=== PATIENT | female | born 1985 | race Caucasian/White ===

== ENCOUNTER 2023-02-10 15:56 | Emergency (ER) | payer MEDICAID, SELFPAY ==
[2023-02-10 16:05] VITALS: BP 188/77; PULSE 114; RESP 22; TEMP 36; O2SAT 97; BMI 55.4
--- NOTE | 2023-02-10 16:40 | ED.CHESTPAIN ---
HPI - Chest Pain General Chief Complaint: Chest Pain Stated Complaint: Chest Pain Time Seen by Provider: 02/10/23 16:12 History of Present Illness HPI narrative: This 37-year-old female comes in reporting brief episodes of chest discomfort in the upper left sternal area. She states that these symptoms last for a minute or so and are not related to exertion. She does not report any nausea, vomiting, lightheadedness, shortness of breath, or diaphoresis. She does not have any exercise intolerance. She has had some symptoms like this in the past and has had her blood checked and was scheduled to have a stress test. She states that she missed the appointment but has a follow-up appointment with her primary doctor where that test can be done again. She is not describing any symptoms at this time. Her chest discomfort is not reproducible with palpating in this area or with taking a deep breath. She does not have any cardiac risk factors except she reports that she is prediabetic. She does report that she has gained about 100 lb in the last year because of depression and in activity and eating too much. She is motivated to work on this and is able to connect with her regular doctor in this regard. Related Data Home Medications Medication Instructions Recorded Confirmed albuterol sulfate 90 mcg/actuation 2 puff inhalation Q4H PRN wheezing 02/10/23 02/10/23 aerosol inhaler (Ventolin HFA) bupropion HCl 300 mg 24 hr tablet, 300 mg PO DAILY 02/10/23 02/10/23 extended release cariprazine 1.5 mg capsule 1.5 mg PO DAILY 02/10/23 (Vraylar) cariprazine 3 mg capsule (Vraylar) 4 mg PO DAILY 02/10/23 02/10/23 econazole 1 % topical cream applic topical DAILY 02/10/23 glycopyrrolate 1 mg tablet mg PO 02/10/23 lisinopril 10 mg tablet 10 mg PO DAILY 02/10/23 02/10/23 oxybutynin chloride 5 mg tablet 5 mg PO 3XD 02/10/23 02/10/23 Allergies Allergy/AdvReac Type Severity Reaction Status Date / Time diphenhydramine Allergy Mild Anxiety Verified 02/10/23 16:17 Review of Systems Status of ROS Reports: 10 or more systems reviewed and unremarkable except as noted in History and below Narrative Constitutional: No fevers, no weight gain or loss. Eyes: No discharge. No vision changes. HENT: No congestion, no sore throat, no ear pain. Cardiovascular: No palpitations. Respiratory: No shortness of breath, no wheezes, no cough. Gastrointestinal: No abdominal pain, no vomiting, no diarrhea. Genitourinary: No dysuria, no hematuria. Musculoskeletal: Normal range of motion. Skin: No rashes, no pruritis. Neurological: No dizziness, weakness, sensory change, speech change. Endo/Heme/Allergies: No bruising or bleeding. No polydipsia. Pysch: no suicidality, no anxiety, no insomnia. All other systems reviewed and are negative. PFSH [facility] Social History Smoking Status: Heavy tobacco smoker What tobacco products do you use: cigarettes Smoking packs per day: 1 Smoking cigarettes per day: 20.0 Years smoked: 10 Smoking pack-years: 10.00 Do you use any of these nicotine containing products: None Second hand tobacco smoke exposure: No How often do you have a drink containing alcohol: 2-3 times a week How many standard drinks containing alcohol do you have on a typical day: 1 or 2 AUDIT-C Alcohol total score: 3 Non-prescribed substance use: denies use Exam Narrative Exam Narrative: Constitutional: Well-developed, well-nourished, no acute distress. HEENT: Normocephalic, atraumatic. Neck: Normal range of motion. Nontender. Supple. Heart: Regular. No murmurs. Mild tachycardia a just over 100 beats per minute. Intact distal pulses. Lungs: Clear to auscultation. No chest discomfort. No wheezes, rhonchi, or rales. Abdomen: Normal bowel sounds. Nontender. No rebound tenderness. Genitalia: Deferred. Back: No midline tenderness. Normal range of motion. Extremities: Normal range of motion. No injury. Skin: Intact. No rash. Warm. No erythema or pallor. Neurologic: No altered sensation. No weakness. Alert and oriented. Psychiatric: No suicidality. No anxiety or depression. No insomnia. Nursing notes and vitals signs are reviewed. Const Vital Signs, click to edit/add: Vital Signs - 24 hr 02/10/23 16:05 Temperature 96.8 F L Pulse Rate [Pulse Oximeter] 114 H Respiratory Rate 22 Blood Pressure [Right Upper Arm] 188/77 H Pulse Oximetry 97 Oxygen Delivery Method Room Air Course Vital Signs Vital signs: Initial Vital Signs Temperature 96.8 F L 02/10/23 16:05 Temperature Source Temporal Artery Scan 02/10/23 16:05 Pulse Rate 114 H 02/10/23 16:05 Respiratory Rate 22 02/10/23 16:05 Blood Pressure 188/77 H 02/10/23 16:05 Blood Pressure Mean 114 02/10/23 16:05 Blood Pressure Position Supine 02/10/23 16:05 Pulse Oximetry 97 02/10/23 16:05 Oxygen Delivery Method Room Air 02/10/23 16:05 Vital Signs Temperature 96.8 F L 02/10/23 16:05 Pulse Rate 114 H 02/10/23 16:05 Respiratory Rate 22 02/10/23 16:05 Blood Pressure 188/77 H 02/10/23 16:05 Pulse Oximetry 97 02/10/23 16:05 Oxygen Delivery Method Room Air 02/10/23 16:05 Temperature 96.8 F L 02/10/23 16:05 Pulse Rate 114 H 02/10/23 16:05 Respiratory Rate 22 02/10/23 16:05 Blood Pressure 188/77 H 02/10/23 16:05 Pulse Oximetry 97 02/10/23 16:05 Oxygen Delivery Method Room Air 02/10/23 16:05 MDM - Chest Pain MDM Narrative Medical decision making narrative: This patient comes in reporting some brief episodes of chest discomfort as described above. Currently she is not having any symptoms. She has had a cardiac workup in the past with EKG and labs and was scheduled to have a stress test. She missed this appointment and states that she will connect with her primary physician to reschedule. I did discuss lab and imaging options today which the patient declined in a process of shared decision making. She does not have any cardiac risk factors except for being overweight. She does not have any exertional symptoms. Her EKG today shows no sign of strain or injury pattern. At the time of discharge the patient appears safe for outpatient management. The treatment plan is reviewed along with written and verbal return precautions. Reasons to return and the importance of close followup were also reviewed. ECG Data Attestation: I personally reviewed and interpreted this ECG as follows: Interpretation: Sinus tachycardia, rate 109 beats per minute. There are no ST or T-wave abnormalities. Discharge Plan Discharge Clinical Impression: Atypical chest pain Patient Disposition: Home, Self-Care Condition: Improved Additional Instructions: Continue current plans. Follow up with primary physician as scheduled. Return if worsening symptoms happen. Prescriptions: No Action glycopyrrolate 1 mg tablet PO lisinopril 10 mg tablet 10 mg PO DAILY oxybutynin chloride 5 mg tablet 5 mg PO 3XD bupropion HCl 300 mg tablet extended release 24 hr 300 mg PO DAILY Vraylar 1.5 mg capsule 1.5 mg PO DAILY Vraylar 3 mg capsule 4 mg PO DAILY econazole 1 % cream topical DAILY albuterol sulfate [Ventolin HFA] 90 mcg/actuation HFA aerosol inhaler 2 puff INHALATION Q4H PRN (Reason: wheezing) Follow Up/Referrals: Stacy Telles MD [Primary Care Provider] - Stand Alone Forms: [employer] Info Instructions
== END 2023-02-10 16:53 | disposition home or self-care (01) ==
LOC: ED 16:47
PROVIDERS: Emergency Provider Emergency Medicine Emergency Medical Services; PCP Family Medicine
DX: R07.9 Chest pain, unspecified (principal)
CPT/HCPCS: 93005; 99284

== ENCOUNTER 2023-07-18 01:14 | Emergency (ER) | payer MEDICAID, SELFPAY ==
[2023-07-18 01:32] VITALS: BP 166/96; PULSE 92; RESP 16; TEMP 37.1; O2SAT 94; BMI 53.2
--- NOTE | 2023-07-18 01:54 | ED.DENTAL ---
HPI - Dental/Oral General Date Seen: 07/18/23 Chief complaint: Dental/Oral/Mouth Injury/Pain Stated complaint: toothache top right. Time Seen by Provider: 07/18/23 01:39 Source: patient Mode of arrival: ambulatory Limitations: no limitations History of Present Illness HPI Narrative: Patient is a 38-year-old female who has been dealing dental decay requiring extractions for over a year. She has been afraid have the teeth pulled and is somewhat embarrassed by that. She has an appointment next week to have two extractions done on her upper right molars. She has been taking Tylenol and ibuprofen for the better part of a year but tonight the pain was so severe that she could not sleep. She comes to emergency department at about 1:30 a.m.. I did search the [employer] system in she has had no narcotics prescribed her in the past year. She denies fevers or chills. There is a bad taste coming from one of the teeth. Related Data Home Medications Medication Instructions Recorded Confirmed albuterol sulfate 90 mcg/actuation 2 puff inhalation Q4H PRN wheezing 02/10/23 07/18/23 aerosol inhaler (Ventolin HFA) cariprazine 1.5 mg capsule 1.5 mg PO DAILY 02/10/23 (Vraylar) cariprazine 3 mg capsule (Vraylar) 4 mg PO DAILY 02/10/23 02/10/23 econazole 1 % topical cream applic topical DAILY 02/10/23 glycopyrrolate 1 mg tablet mg PO 02/10/23 lisinopril 10 mg tablet 10 mg PO DAILY 02/10/23 07/18/23 oxybutynin chloride 5 mg tablet 5 mg PO 3XD 02/10/23 02/10/23 lamotrigine 150 mg tablet 150 mg PO DAILY 07/18/23 07/18/23 metformin 500 mg tablet,extended 500 mg PO DAILY 07/18/23 07/18/23 release 24 hr propranolol 60 mg capsule,24 60 mg PO DAILY 07/18/23 07/18/23 hr,extended release Previous Rx's Medication Instructions Recorded oxycodone 5 mg tablet 5 mg PO Q6H PRN pain #20 tabs 07/18/23 penicillin V potassium 500 mg 500 mg PO TID #21 tabs 07/18/23 tablet Allergies Allergy/AdvReac Type Severity Reaction Status Date / Time diphenhydramine Allergy Mild Anxiety Verified 07/18/23 01:32 Review of Systems Narrative: Review of systems is outlined above otherwise noted to be negative. Her mental health is stable. No recent changes in any of her medications. [facility] Social History Smoking Status: Heavy tobacco smoker What tobacco products do you use: cigarettes Smoking packs per day: 1 Smoking cigarettes per day: 20.0 Years smoked: 10 Smoking pack-years: 10.00 Do you use any of these nicotine containing products: None Second hand tobacco smoke exposure: No How often do you have a drink containing alcohol: 2-3 times a week How many standard drinks containing alcohol do you have on a typical day: 1 or 2 AUDIT-C Alcohol total score: 3 Non-prescribed substance use: denies use Exam Narrative: Exam Narrative: Vitals noted. Blood pressure is elevated. On exam she has dental decay of several of her upper teeth. She is missing several teeth on the left side. There is tenderness to percussion. No purulent drainage or obvious abscess is noted. No significant regional adenopathy. Posterior pharynx is clear. She is able to open and close her mouth without difficulty. Lungs are clear. Heart is regular rate rhythm without murmur. Const: Vital Signs, click to edit/add: Vital Signs - 24 hr 07/18/23 01:32 Temperature 98.8 F Pulse Rate [Pulse Oximeter] 92 Respiratory Rate 16 Blood Pressure [Ri ght Upper Arm] 166/96 H Pulse Oximetry 94 Oxygen Delivery Me thod Room Air Course Course Hospital Course: Patient seen and examined. She has obvious dental decay and dental pain. No recent narcotic prescriptions have been filled. I sent some oxycodone 5 mg tablets to [facility] in a prescription to her pharmacy. Will also start antibiotic until she can have her extractions. Vital Signs Vital signs: Initial Vital Signs Temperature 98.8 F 07/18/23 01:32 Temperature Source Temporal Artery Scan 07/18/23 01:32 Pulse Rate 92 07/18/23 01:32 Respiratory Rate 16 07/18/23 01:32 Blood Pressure 166/96 H 07/18/23 01:32 Blood Pressure Mean 119 H 07/18/23 01:32 Pulse Oximetry 94 07/18/23 01:32 Oxygen Delivery Method Room Air 07/18/23 01:32 Vital Signs Temperature 98.8 F 07/18/23 01:32 Pulse Rate 92 07/18/23 01:32 Respiratory Rate 16 07/18/23 01:32 Blood Pressure 166/96 H 07/18/23 01:32 Pulse Oximetry 94 07/18/23 01:32 Oxygen Delivery Method Room Air 07/18/23 01:32 Temperature 98.8 F 07/18/23 01:32 Pulse Rate 92 07/18/23 01:32 Respiratory Rate 16 07/18/23 01:32 Blood Pressure 166/96 H 07/18/23 01:32 Pulse Oximetry 94 07/18/23 01:32 Oxygen Delivery Method Room Air 07/18/23 01:32 Discharge Plan Discharge Clinical Impression: Dental caries, Toothache Patient Disposition: Home, Self-Care Condition: Improved Additional Instructions: Ibuprofen 800 mg 3 times daily. Tylenol 1000 mg 3 times daily. Oxycodone 5 mg every 6 hours as needed for refractory pain. Keep your follow-up appointment with the dentist next week for your extractions. Prescriptions: New oxycodone 5 mg tablet 5 mg PO Q6H PRN (Reason: pain) Qty: 20 0RF penicillin V potassium 500 mg tablet 500 mg PO TID Qty: 21 0RF No Action glycopyrrolate 1 mg tablet PO lisinopril 10 mg tablet 10 mg PO DAILY oxybutynin chloride 5 mg tablet 5 mg PO 3XD Vraylar 1.5 mg capsule 1.5 mg PO DAILY Vraylar 3 mg capsule 4 mg PO DAILY econazole 1 % cream topical DAILY albuterol sulfate [Ventolin HFA] 90 mcg/actuation HFA aerosol inhaler 2 puff INHALATION Q4H PRN (Reason: wheezing) lamotrigine 150 mg tablet 150 mg PO DAILY propranolol 60 mg capsule,extended release 24 hr 60 mg PO DAILY metformin 500 mg tablet extended release 24 hr 500 mg PO DAILY Follow Up/Referrals: Stacy Telles MD [Primary Care Provider] - Stand Alone Forms: [facility] Info Instructions
== END 2023-07-18 02:02 | disposition home or self-care (01) ==
LOC: ED 01:56
PROVIDERS: Emergency Provider Family Medicine; PCP Family Medicine
DX: K02.9 Dental caries, unspecified (principal)
CPT/HCPCS: 99281; 99283

== ENCOUNTER 2023-12-29 04:49 | Outpatient (CLI) | payer MEDICAID, SELFPAY | END 2023-12-29 04:50 | disposition home or self-care (01) | LOC: AMB 12-30 18:32 | PROVIDERS: PCP Family Medicine; Visit Provider Family Medicine | DX: J04.0 Acute laryngitis (principal); T50.905A Adverse effect of unspecified drugs, medicaments and biological substances, initial encounter | CPT/HCPCS: A0425; A0429 ==

== ENCOUNTER 2023-12-29 05:08 | Emergency (ER) | payer MEDICAID, SELFPAY ==
[2023-12-29 05:11] VITALS: BP 169/101; PULSE 104; RESP 16; TEMP 36.1; O2SAT 95; BMI 50.2
--- NOTE | 2023-12-29 05:16 | ED.NURSE ---
pt noticed symptoms Friday afternoon. Pt had been taking the medication on and off for several years. Pt noticed the pill was different than past pills.
[2023-12-29] MEDS: HYDROCORTISONE 1 % CREAM 1 APPLIC TOPICAL (05:59)
--- NOTE | 2023-12-29 06:04 | ED.GENADULT ---
HPI - General Adult General Chief complaint: Allergic Reaction Stated complaint: possible allergic reaction Time Seen by Provider: 12/29/23 05:21 Source: patient and EMS Mode of arrival: EMS History of Present Illness HPI narrative: 38-year-old female with longstanding history mental illness and multiple emergency department visits presents for concerned that she may have Ham-Danilo syndrome from her lamotrigine. She ago wheeled her rash and found that this was a potential side effect. Rashes been present for the past 5 days and she has not made an attempt to be seen by her primary care provider or in Urgent Care. She called the ambulance in the middle of the night for this. It is located on the dorsum of both hands only. No difficulty swallowing, no shortness of breath. No peeling of the palms or soles, oral mucosa not involved. No sore throat. Rash is not anywhere else on the body. When asked specifically if she has been spending more time outside as I do tend to see this pattern of rash often with weather induced exposure. She admits that she has done this and does not consistently wear gloves. She then rattles on a list of ongoing things that she is seen providers for. She reports that she actually has an appointment with her chiropractor and 9:00 a.m. this morning. She states she has a medication follow-up with her psychiatry medication provider later this week. She has had ongoing issues with insomnia that she has addressed with this provider. It sounds as though she has had labs within the last few months. When asked for clarification about chest pain or any other alarming symptoms, she denies those and is quite reassured by my assessment of her rash. She has not tried applying any topical treatments to the rash to help with her symptoms, denies any other new topical exposures. Past medical history really significant for mental health issues. I reviewed the last couple of ED notes and that does seem consistent for her. She even admits to perseveration on health and rash issues in the past which shows good insight on her part. Denies any recent changes to her medications. ROS is difficult to pin down for acute changes versus chronic. Multiple attempts at redirection were not particularly helpful. Related Data Home Medications Medication Instructions Recorded Confirmed albuterol sulfate 90 mcg/actuation 2 puff inhalation Q4H PRN wheezing 02/10/23 07/18/23 aerosol inhaler (Ventolin HFA) cariprazine 1.5 mg capsule 1.5 mg PO DAILY 02/10/23 (Vraylar) cariprazine 3 mg capsule (Vraylar) 4 mg PO DAILY 02/10/23 02/10/23 econazole 1 % topical cream applic topical DAILY 02/10/23 glycopyrrolate 1 mg tablet mg PO 02/10/23 lisinopril 10 mg tablet 10 mg PO DAILY 02/10/23 07/18/23 oxybutynin chloride 5 mg tablet 5 mg PO 3XD 02/10/23 02/10/23 lamotrigine 150 mg tablet 150 mg PO DAILY 07/18/23 07/18/23 metformin 500 mg tablet,extended 500 mg PO DAILY 07/18/23 07/18/23 release 24 hr propranolol 60 mg capsule,24 60 mg PO DAILY 07/18/23 07/18/23 hr,extended release Previous Rx's Medication Instructions Recorded oxycodone 5 mg tablet 5 mg PO Q6H PRN pain #20 tabs 07/18/23 penicillin V potassium 500 mg 500 mg PO TID #21 tabs 07/18/23 tablet Allergies Allergy/AdvReac Type Severity Reaction Status Date / Time diphenhydramine Allergy Mild Anxiety Verified 07/18/23 01:32 PFSH PFS Social History Smoking Status: Heavy tobacco smoker What tobacco products do you use: cigarettes Smoking packs per day: 1 Smoking cigarettes per day: 20.0 Years smoked: 10 Smoking pack-years: 10.00 Do you use any of these nicotine containing products: None Second hand tobacco smoke exposure: No How often do you have a drink containing alcohol: 2-3 times a week How many standard drinks containing alcohol do you have on a typical day: 1 or 2 AUDIT-C Alcohol total score: 3 Non-prescribed substance use: denies use Exam Const: Vital Signs, click to edit/add: Vital Signs - 24 hr 12/29/23 05:11 Temperature 97.0 F L Pulse Rate [Left P ulse Oximeter] 104 H Respiratory Rate 16 Blood Pressure [Ri ght Upper Arm] 169/101 H Pulse Oximetry 95 Oxygen Delivery Me thod Room Air Documenting provider has reviewed patient's vital signs: yes General appearance: well kempt Other: Anxious but redirectable. Insight fair at best. Does appear well groomed, well nourished, well hydrated. HENMT: Common normals: normocephalic and oropharynx normal Head and scalp: normocephalic Mouth: oral and palatal mucosa normal Throat: posterior oropharynx normal Eye: Common normals: conjunctivae normal General eye: normal appearance of both eyes Conjunctiva: conjunctiva(e) normal Neck & C-Spine: Common normals: full ROM and no lymphadenopathy Resp: Common normals: normal respiratory effort, no use of accessory muscles and clear to auscultation bilaterally Effort & inspection: able to speak in complete sentences Auscultation: clear to auscultation bilaterally Cardio: Common normals: regular rate, regular rhythm, S1 normal heart sound, S2 normal heart sound and no murmurs Rate: regular rate Rhythm: regular rhythm Heart sounds: S1 normal and S2 normal Extremity: Common normals: normal capillary refill and no pedal edema Psych: Appearance: well kempt Attitude: guarded Activity/motor behavior: appropriate eye contact Mood and affect: anxious Insight: fair Judgement: limited Skin: Narrative: Very mild superficial dermatitis to the dorsum of the distal hand and phalanx on the dorsum of the hand, sparing the interphalangeal joints. No skin breakdown or signs of excoriation. Palms are not affected. Finger tips are not affected. No other affected areas of the neck, face, upper arm, thighs or calves. Course Course ED Course: Eczema, likely cold induced based on pattern that would not be covered by her coat with curled finger tips. Counseled patient that this is quite common this time of year and I am happy that she is getting outside. Recommended a short course of topical steroid cream and covering Vaseline, written instructions provided. I do doubt her ability to navigate this by herself, therefore we have dispensed the medications here from the ED. counseled patient on signs and symptoms of Pato Danilo syndrome. I am confident that this is not what she is experiencing right now. Please continue her medications as prescribed and keep her pending appointments for further follow-up this week. She verbalizes understanding and agreement and seemed to do well with the reassurance. Vital Signs Vital signs: Initial Vital Signs Temperature 97.0 F L 12/29/23 05:11 Temperature Source Temporal Artery Scan 12/29/23 05:11 Pulse Rate 104 H 12/29/23 05:11 Pulse Rhythm Regular 12/29/23 05:11 Respiratory Rate 16 12/29/23 05:11 Blood Pressure 169/101 H 12/29/23 05:11 Blood Pressure Mean 123 H 12/29/23 05:11 Blood Pressure Position Sitting 12/29/23 05:11 Pulse Oximetry 95 12/29/23 05:11 Oxygen Delivery Method Room Air 12/29/23 05:11 Vital Signs Temperature 97.0 F L 12/29/23 05:11 Pulse Rate 104 H 12/29/23 05:11 Respiratory Rate 16 12/29/23 05:11 Blood Pressure 169/101 H 12/29/23 05:11 Pulse Oximetry 95 12/29/23 05:11 Oxygen Delivery Method Room Air 12/29/23 05:11 Temperature 97.0 F L 12/29/23 05:11 Pulse Rate 104 H 12/29/23 05:11 Respiratory Rate 16 12/29/23 05:11 Blood Pressure 169/101 H 12/29/23 05:11 Pulse Oximetry 95 12/29/23 05:11 Oxygen Delivery Method Room Air 12/29/23 05:11 Medications Administered Medications: Discontinued Medications Generic Name Dose Route Start Last Admin Trade Name Freq PRN Reason Stop Dose Admin Hydrocortisone/Aloe 1 applic 12/29/23 05:31 12/29/23 05:59 Hydrocortisone 1 % Cream TOPICAL 12/29/23 05:32 1 applic BID ONE Administration Discharge Plan Discharge Clinical Impression: Contact dermatitis and eczema Patient Disposition: Home, Self-Care Condition: Stable Instructions: Contact Dermatitis (DC) Additional Instructions: As we discussed, the very mild skin reaction on your hands is not related to Pato Danilo syndrome. I am quite familiar with that condition. Most likely, the reaction is due to cold temperatures and being outside. The dry winter air does tend to worsen this in many people. The good news is that this is not dangerous. This is not related to your medication. We have given you a small starter supply of hydrocortisone cream. You will apply a pea-sized amount to the affected areas of the top of each hand twice daily for the next 5 days. You will let the cream set for a few minutes and then apply a thin coating of Vaseline. We have given you a very small tube to get you started but you will need to purchase some more. I like plain Vaseline or petroleum jelly for this. The generic tub is perfect. You may also use the tub of Vaseline on your lips for dryness. I do think some of your mouth dryness is related to benign side effects from your medications but is also not dangerous. If you get a similar appearing rash on other parts of the body, you may apply the Vaseline there as well. It will take a couple of weeks to clear up. If the rash goes away and then comes back, you may start the process over again. This is very common in the winter and is not to be of significant concern. Please keep your follow-up as planned with her chiropractor today and your primary physician this week. Try to wear gloves when outside as even temperatures of 40? and below can cause this skin irritation. Activity Level: No Restrictions Discharge Diet: Regular Prescriptions: No Action glycopyrrolate 1 mg tablet PO lisinopril 10 mg tablet 10 mg PO DAILY oxybutynin chloride 5 mg tablet 5 mg PO 3XD Vraylar 1.5 mg capsule 1.5 mg PO DAILY Vraylar 3 mg capsule 4 mg PO DAILY econazole 1 % cream topical DAILY albuterol sulfate [Ventolin HFA] 90 mcg/actuation HFA aerosol inhaler 2 puff INHALATION Q4H PRN (Reason: wheezing) lamotrigine 150 mg tablet 150 mg PO DAILY propranolol 60 mg capsule,extended release 24 hr 60 mg PO DAILY metformin 500 mg tablet extended release 24 hr 500 mg PO DAILY oxycodone 5 mg tablet 5 mg PO Q6H PRN (Reason: pain) Qty: 20 0RF penicillin V potassium 500 mg tablet 500 mg PO TID Qty: 21 0RF Follow Up/Referrals: Stacy Telles MD [Primary Care Provider] - Stand Alone Forms: [employer] Info Instructions
== END 2023-12-29 06:00 | disposition home or self-care (01) ==
LOC: ED 05:41
PROVIDERS: Emergency Provider Family Medicine; PCP Family Medicine
DX: L23.89 Allergic contact dermatitis due to other agents (principal)
CPT/HCPCS: 99282; 99283

== ENCOUNTER 2024-04-22 14:00 | Outpatient (RCR) | payer MEDICARE, MEDICAID, SELFPAY | END 2024-08-20 23:59 | disposition home or self-care (01) | PROVIDERS: PCP Family Medicine; Visit Provider Family Medicine | DX: M25.551 Pain in right hip (principal); Z51.89 Encounter for other specified aftercare | CPT/HCPCS: 97110; 97140; 97161 ==

== ENCOUNTER 2024-09-14 04:21 | Outpatient (CLI) | payer MEDICARE, MEDICAID, SELFPAY | END 2024-09-14 04:22 | disposition home or self-care (01) | LOC: AMB 09-27 23:47 | PROVIDERS: PCP Family Medicine; Visit Provider Family Medicine | DX: I49.9 Cardiac arrhythmia, unspecified (principal) | CPT/HCPCS: A0998 ==

== ENCOUNTER 2025-01-10 07:03 | Outpatient (CLI) | payer MEDICARE, OTHER, SELFPAY ==
--- NOTE | 2025-01-10 07:15 | CRLHL7_ITS ---
For Patients: As a result of the Century Cures Act, medical imaging exams and procedure reports are released immediately into your electronic medical record. You may view this report before your referring provider. If you have questions, please contact your health care provider. INDICATION: Elevated liver function tests TECHNIQUE: Color-flow and pulsed Doppler of the portal vein, hepatic veins and hepatic artery. COMPARISON: None FINDINGS: The liver is moderately enlarged and fatty. The portal vein is normal in caliber, and there is hepatopetal flow of normal velocity in the portal vein at 33 cm/sec. The hepatic veins are patent and demonstrate hepatofugal flow and grossly normal waveforms. The hepatic artery is also patent and demonstrates grossly normal waveforms. No gallstone is evident. No gallbladder wall thickening or pericholecystic fluid is evident. No bile duct dilation is noted. The common duct measures up to 6 mm in diameter. The pancreas is grossly negative. The kidneys are unremarkable. The spleen is borderline enlarged, measuring 12 cm in length. No ascites evident. IMPRESSION: 1. Normal liver Doppler study. 2. Liver moderately enlarged and fatty. 3. Borderline splenomegaly. Dictated by Kt Bennett MD @ 01/10/2025 12:30:17 PM (Electronically Signed)
== END 2025-01-10 07:04 | disposition home or self-care (01) ==
LOC: US 07:05
PROVIDERS: PCP Family Medicine; Visit Provider Physician Assistant
DX: R79.89 Other specified abnormal findings of blood chemistry (principal); R16.0 Hepatomegaly, not elsewhere classified
CPT/HCPCS: 76700; 93975

== ENCOUNTER 2025-07-03 20:31 | Emergency (ER) | payer MEDICARE, MEDICAID, SELFPAY ==
[2025-07-03] VITALS (13 sets, daily range): BP systolic 133–193; BP diastolic 75–113; PULSE 100–128; RESP 17–34; TEMP 36.9; O2SAT 90–98; BMI 48.3
--- OUTSIDE RECORDS SUMMARY | 2025-07-03 20:34 | XMS_ITS | Clinical Summary ---
Author Organization [facility] Address [address] [place] [address] Care Team Providers Care Gamewell Operator Name Role Phone Stacy Telles MD Primary Care Provider [phone] Betito Ying MD Unavailable [phone] Yessi Espana RN Unavailable [phone] Allergies Active Allergy Reactions Criticality Noted Date Comments Diphenhydramine Hallucinations Medium 11/08/2021 Unlisted Allergen (Include Detail In Comments) Runny Nose,Other - Describe In Comment Field Low 09/17/2021 Environmental allergies Medications nystatin powder (MYCOSTATIN) powderIndications: Candidal intertrigo Apply 1 Strip topically to affected area(s) three times daily. 60 g 3 04/16/20 23 Active nystatin (MYCOSTATIN) 100,000 unit/gram topical creamIndications:S kin yeast infection Apply topically to affected area(s) two times daily. 30 g 11/18/19 24 Active docusate (COLACE) 100 mg tablet Take 100 mg by mouth once daily. Active DULoxetine (CYMBALTA) 60 mg Delayed-release capsuleIndications :Bipolar 1 disorder (HC) Take 1 Capsule (60 mg) by mouth once daily. 30 Capsule 04/14/20 24 Active OLANzapine (ZYPREXA) 5 mg tabletIndications: Bipolar 1 disorder (HC) Take 1 Tablet (5 mg) by mouth at bedtime. 15 Tablet 04/14/20 24 Active Additional Information Patient taking differently:5 mg OralBEDTIME PRN, Sleep, Reported on 02/09/2025 risperiDONE (RISPERDAL) 2 mg tabletIndications: Bipolar 1 disorder (HC) TAKE 1 TABLET BY MOUTH AT BEDTIME 3 Tablet 05/14/20 Active Additional Information Patient taking differently: 0.75 mgOral BEDTIME, Reported on 06/09/2025 DULoxetine (CYMBALTA) 20 mg Delayed-release capsuleIndications :Bipolar 1 disorder (HC) TAKE 1 CAPSULE (20 MG) BY MOUTH AT BEDTIME. 3 Capsule 05/14/20 Active lamoTRIgine 100 mg tablet Take 150 mg by mouth once daily. 07/20/20 Active diabetic supplies, miscellan.Indicati ons:diabetes mellitus Dispense glucose meter, test strips and lancets covered by patient insurance. Test 1 times per day. 1 Kit 10/06/20 Active lancets 32 gauge miscIndications:di abetes mellitus As directed. Dispense item covered by pt ins. E11.9 NIDDM type II - Test 1 time/day 100 Each 10/06/20 24 Active blood sugar diagnostic (Pharmacist Choice) stripIndications:d iabetes mellitus Dispense item covered by pt ins. E11.9 NIDDM type II - Test 1 time/day 100 Each 10/06/20 Active aspirin (ECOTRIN) 81 mg enteric coated tabletIndications: Type 2 diabetes mellitus without complication, without long-term current use of insulin (HC) Take 1 Tablet (81 mg) by mouth once daily with a meal. 90 Tablet 11/04/20 24 Active Blood-Glucose Meter (Accu-Chek Guide Me Glucose Mtr)Indications:Ty pe 2 diabetes mellitus without complications (HC) DISPENSE GLUCOSE METER, TEST STRIPS AND LANCETS COVERED BY PATIENT INSURANCE. TEST 1 TIMES PER DAY. 1 Each 11/07/20 24 Active metroNIDAZOLE 0.75 % gelIndications:Ros acea Apply topically to affected area(s) two times daily. 45 g 3 11/18/19 25 Active saliva substitute (Biotene Dry Mouth Oral Rinse) mouthwashIndicatio ns:Dry mouth Swish and spit 15 mL by mouth 4 times daily if needed for Dry Mouth. 1000 mL 3 12/16/19 25 Active aluminum chloride (Drysol) 20 % external solutionIndication s:Hyperhidrosis Apply topically to affected area(s) at bedtime. 50 mL 3 12/16/19 25 Active econazole nitrate cream 1 % creamIndications:T inea versicolor APPLY TOPICALLY TO AFFECTED AREA(S) ONCE DAILY. 85 g 1 05/02/20 25 Active tirzepatide (MOUNJARO) 7.5 mg/0.5 mL penIndications:Typ e 2 diabetes mellitus without complication, without long-term current use of insulin (HC) Inject 7.5 mg subcutaneous once weekly. 6 mL 1 06/09/20 25 Active rosuvastatin (CRESTOR) 5 mg tabletIndications: Hyperlipidemia, unspecified hyperlipidemia type Take 1 Tablet (5 mg) by mouth at bedtime. 90 Tablet 1 06/09/20 25 Active metFORMIN (GLUCOPHAGE XR) 500 mg Extended-Release tabletIndications: Type 2 diabetes mellitus without complication, without long-term current use of insulin (HC) Take 4 Tablets (2,000 mg) by mouth once daily with evening meal. Then take 4 tabs (2000 mg) once daily with evening meal thereafter 360 Tablet 1 06/09/20 25 Active lisinopriL (PRINIVIL; ZESTRIL) 10 mg tabletIndications: HTN (hypertension) Take 1 Tablet (10 mg) by mouth once daily. 90 Tablet 1 06/09/20 25 Active propranolol ER (INDERAL LA) 60 mg Cs24 Sustained-Release capsuleIndications :HTN (hypertension) Take 1 Capsule (60 mg) by mouth once daily. 90 Capsule 1 06/09/20 25 Active oxybutynin XL (DITROPAN XL) 5 mg CR tabletIndications: Urge incontinence Take 1 Tablet (5 mg) by mouth once daily. 90 Tablet 3 06/09/20 25 Active loratadine (CLARITIN) 10 mg tabletIndications: Seasonal allergic rhinitis due to pollen Take 1 Tablet (10 mg) by mouth once daily. 90 Tablet 1 06/09/20 25 Active fluticasone propion-salmeteroL (ADVAIR) 115-21 mcg/actuation inhalerIndications :Wheezing,FINN (dyspnea on exertion),Asthma, unspecified asthma severity, unspecified whether complicated, unspecified whether persistent (HC) Inhale 2 Puffs by mouth two times daily. 3 Each 06/09/20 25 Active albuterol HFA (PRO-AIR; VENTOLIN; PROVENTIL) 90 mcg/actuation inhalerIndications :Wheezing Inhale 2 Puffs by mouth every 4 hours if needed for Shortness Of Breath (cough or wheezing). 18 g 3 06/09/20 25 Active albuterol HFA (PRO-AIR; VENTOLIN; PROVENTIL) 90 mcg/actuation inhalerIndications :Wheezing Inhale 2 Puffs by mouth every 4 hours if needed for Shortness Of Breath (cough or wheezing). 18 g 3 09/16/20 24 025 Discontin ued(Reord er (E-cancel not sent)) propranolol ER 60 mg Cs24 Sustained-Release capsuleIndications :HTN (hypertension) Take 1 Capsule (60 mg) by mouth once daily. 90 Capsule 1 02/18/20 25 025 Discontin ued(Reord er (E-cancel not sent)) metFORMIN 500 mg Extended-Release tabletIndications: Type 2 diabetes mellitus without complication, without long-term current use of insulin (HC) Take 4 Tablets (2,000 mg) by mouth once daily with evening meal. Then take 4 tabs (2000 mg) once daily with evening meal thereafter 360 Tablet 02/18/20 25 025 Discontin ued(Reord er (E-cancel not sent)) lisinopriL 10 mg tabletIndications: HTN (hypertension) Take 1 Tablet (10 mg) by mouth once daily. 90 Tablet 1 02/18/20 25 025 Discontin ued(Reord er (E-cancel not sent)) rosuvastatin 5 mg tabletIndications: Hyperlipidemia, unspecified hyperlipidemia type Take 1 Tablet (5 mg) by mouth at bedtime. 90 Tablet 1 02/18/20 25 025 Discontin ued(Reord er (E-cancel not sent)) loratadine 10 mg tabletIndications: Seasonal allergic rhinitis due to pollen TAKE 1 TABLET BY MOUTH EVERY DAY 90 Tablet 03/22/20 25 025 Discontin ued(Reord er (E-cancel not sent)) tirzepatide 5 mg/0.5 mL penIndications:Typ e 2 diabetes mellitus without complication, without long-term current use of insulin (HC) Inject 5 mg subcutaneous once weekly. 6 mL 05/13/20 25 025 Discontin ued(*Medi cation adjustmen t) fluticasone propion-salmeteroL (ADVAIR) 115-21 mcg/actuation inhalerIndications :Wheezing,FINN (dyspnea on exertion),Asthma, unspecified asthma severity, unspecified whether complicated, unspecified whether persistent (HC) TAKE 2 PUFFS BY MOUTH TWICE A DAY 1 Each 05/31/20 25 025 Discontin ued(Reord er (E-cancel not sent)) Active Problems Problem Noted Date Diagnosed Date Obstructive lung disease (generalized) 5 Pap smear for cervical cancer screening 09/24/20 Overview (09/24/2024): 08/2024 NIL/HPV negative. Plan: Pap/HPV due 08/2029. 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 Elijah Mcgowan MD / psychiatry Hidradenitis 12/05/2015 IUD migration 10/27/2013 Tobacco use disorder 05/23/2009 HTN (hypertension) Intermittent asthma Elevated LFTs Bipolar 1 disorder COVID-19 virus infection Resolved Problems Problem Noted Date Diagnosed Date Resolved Date Mental health disorder 01/12/201610/30 Overview (01/12/2016): Under the care of Elijah Mcgowan MD for mental health care. [facility] Previous Medication Trials: Seroquel (Side Effects), Ativan (Side Effects), Lamictal, [place], Zyprexa (Side Effects), Geodon, Lunesta (Stopped Using - Not Effective), Vistaril, Trazodone, Klonopin, Abilify Past Psychiatric Hospitalizations: 08/2008: [facility] [place] (Diagnosed with Bipolar) 06/2009: [place] 01/2011: [facility] (SI/SIB) 07/2011: [facility] (Manic) 2010: [facility], [place] History of Suicide Attempts: Deferred Brief Summary: Therapist: Tracey Dupont Previously saw Rodney Landis MD and Honorio Mosley, RADIOLOGIST - Transitioned to Dr. Mcgowan in 06/2011 Bipolar disorder, most recent episode manic 05/17/2013 09/25/2018 Bipolar I disorder, most rec ent episode (or current) manic, severe, without mention of psychotic behavior 09/25/2011 05/17/2013 Encounters for other specifi ed administrative purpose(V68.89) 08/29/2009 08/29/2009 Unspecified episodic mood disorder 10/14/2008 05/17/2013 Bipolar I disorder, most rec ent episode (or current) unspecified 08/25/2008 05/17/2013 Encounters Date Type Department Care Team Description 06/09/2025 11:15 AM CDT Office Visit [address] [address] Stacy Telles MD Diabetes 06/09/2025 Travel 05/29/2025 Refill [facility] [address] [place] [address] Stacy Telles MD Refill Request (Fluticasone Propion-salmeterol) 05/22/2025 Refill [facility] [address] [place] [address] Stacy Telles MD Refill Request (Mounjaro) 05/12/2025 Refill [facility] [address] [place] [address] Stacy Telles MD Refill Request (tirzepatide 5 mg/0.5 mL pen) 04/29/2025 Refill [facility] [address] [place] [address] Stacy Telles MD Refill Request (Ryder, Econazole Nitrate Cream) 04/07/2025 11:40 AM CDT Telemedicine [facility] [address] [phone] Jess Summers PA Telehealth (Looking for note for gym) 04/07/2025 Travel 04/06/2025 Telephone [facility] [address] [place] [address] Stacy Telles MD Questions ([facility] for [facility] ) from Last 3 Months Immunizations Immunization Administration Dates Next Due COVID-19 vaccine (bitHound-Bio NTech 30mcg/0.3mL) 12YO+ JERALD-SUCROSE MD MARKV 01/30/2022,01/04/2022 DTaP 06/11/1989,,01/08/1985,1983,1984 Hepatitis A (Adult) 06/10/2011,05/11/2010 Hepatitis B (Peds) 02/22/2000,07/17/1998, 998 Human Papilloma Virus Vaccine 06/10/2011, 010 Influenza A (H1N1), Inactiva kassandra (Age >=3 Years) 09/26/2009 Influenza, IIV3 (Age >=3 years) 09/07/2013,08/26 MMR 03/02/1996,12/08/1985 Pneumococcal Conj 20-valent (Prevnar 20) 06/20/2022 Polio Virus, Unspecified 06/11/1989,01/16,1984,1983 Td (Age >=7 Years) 03/02/1996 Tdap 10/15/2013,08/28/2006 Family History Medical History Relation Name Comments Hypertension Father Mahendra Diabetes Maternal Grandmother [place] Hypertension Mother Lupe Heart Disease Paternal Grandfather Diabetes Paternal Grandmother Heart Disease Paternal Grandmother Anesthesia Problem No Family History Blood Disease No Family History Relation Name Status Comments Brother 1 Archie Alive Brother 2 Erwin Alive Father Mahendra Alive Maternal Grandfather Gene Alive Maternal Grandmother [place] Alive Mother Lupe Alive Paternal Grandfather (Age 40) Paternal Grandmother (Age 80) Social History Tobacco Use Types Packs/Day Years Used Date Smoking Tobacco: Every Day Cigarettes 1.5 19.6 Started: 2005; Last attempted to quit: 12/06/2024 Smokeless Tobacco: Never Tobacco Cessation:Ready to Q uit: No; Counseling Given: No Alcohol Use Standard Drinks/Week Comments Yes 0 (1 standard drink = 0.6 oz pur e alcohol) rare once a month PHQ-2 Answer Date Recorded PHQ-2 TOTAL SCORE 2 09/16/2024 Social Connections Answer Date Recorded Do you often feel lonely or isolated from those around you? 0 02/09/2025 Alcohol Use Answer Date Recorded How often do you have a drink containing alcohol ? 2 11/18/2023 How many drinks containing a lcohol do you have on a typical day when you are drinking? 0 11/18/2023 How often do you have five or more drinks on one occasion? 0 11/18/2023 Financial Resource Strain Answer Date R ecorded Difficulty of Paying Living Expenses 3 02/09/2025 Difficulty of Paying Living Expenses Not on file 02/09/2025 Food Insecurity Answer Date Recorded Do you worry your food will run out before you are able to buy more? 1 02/09/2025 Transportation Needs Answer Date Record ed Does lack of transportation keep you from medica l appointments? 1 02/09/2025 Does lack of transportation keep you from work, meetings or getting things that you need? 1 02/09/2025 Housing Stability Answer Date Recorded What is your housing situation today? 1 02/09/2025 Interpersonal Safety Answer Date Record ed Are you being hit, kicked, p ushed or yelled at (see row info)? No 12/31/2023 Interpersonal Safety Abuse 12 - 18 Not on file 12/31/2023 Interpersonal Safety Ambulatory Vulnerability No t on file 12/31/2023 Utilities Answer Date Recorded Do you have trouble paying f or utilities (for example, heat, electricity, water, phone)? 1 02/09/2025 Comments No Sex and Gender Information Value Date Recorded Sex Assigned at Not on file Legal Sex Female 5:17 AM FORGING DIE SINKER Gender Identity Not on file Sexual Orientation Not on file Obstetrics History Para Term AB IAB SAB Ectopic Multiple Livin g Live Births 2 1 1 1 1 1 Date Outcome GA Total Labor Labor/2nd/3rd Weight Sex Type Anes PTL Ashanti A1 A5 Name Clin Term 6 IAB 22w 4d Delivery Location:[facility] Comments Multiple anomalies, therapeu tic D&E for 2nd Last Filed Vital Signs Vital Sign Reading Time Taken Comments Blood Pressure 123/80 06/09/2025 11:28 AM CDT Pulse 84 06/09/2025 11:28 AM CDT Temperature 36.7 C (98 F) 12/31/2023 5:25 PM FORGING DIE SINKER Respiratory Rate 18 12/31/2023 6:08 PM FORGING DIE SINKER Oxygen Saturation 95% 06/09/2025 11: 28 AM CDT Inhaled Oxygen Concentration - - Weight 147.1 kg (324 lb 6.4 oz) 025 11:28 AM CDT Height 175.3 cm (5' 9.02) 01/12/2025 4:00 PM CS T Body Mass Index 47.88 01/12/2025 4:00 PM FORGING DIE SINKER Plan of Treatment Health Maintenance Due Date Last Done Comments Tetanus booster 10/15/2023 10/15/2013, 08/17, 03/02/1996 COVID-19 vaccine series ( season) 2024 01/30/2022, 01/04/2022 Influenza Vaccine (#1) 2025 09/07/2013, 2011 Depression screening for age 12+ 09/17/2025 09/17/2024, 09/16/2024, 04/16/2023, Additional history exists BMI (ht and wt on same day) for age 18+ 01/12/2026 01/12/2025, 12/28/2024, 09/16/2024, Additional history exists Pap test for age 21-65 09/16/2029 , 10/31/2020, 10/31/2020, Additional history exists Hepatitis B series for 19+ Completed 02/21, 07/17/1998, 06/05/1998 HIV for age 15-65 Completed 06/04/2016, , 07/12/2010, Additional history exists Pneumococcal series for age 6-49 Completed 06/20/20 Hepatitis C screening for ag e 18-79 Completed 12/03/2022, 06/04/2016, 12/05/2015, Additional history exists Goals Goal Patient Goal Type Associated Problems Recent Progress Patient-Stated? Author BLOOD PRESSURE - Maintains BP less than 130/80 Blood Pressure Stacy Go MD Procedures Procedure Name Priority Date/Time Associated Diagnosis Comments URINALYSIS MACROSCOPIC - [facility] ONLY POC DIP ([facility]) Routine 06/09/2025 12:02 PM CDT Urge incontinence URINALYSIS MICROSCOPIC Routine 06/09/2025 11:51 AM CDT Urge incontinence URINE CULTURE Routine 06/09/2025 11:51 AM CDT Urge incontinence COMP METABOLIC PANEL Routine 06/09/2025 11:18 AM CDT Type 2 diabetes mellitus without complication, without long-term current use of insulin (HC) HEMOGLOBIN A1C MONITORING (POCT) Routine 06/09/2025 11:17 AM CDT Type 2 diabetes mellitus without complication, without long-term current use of insulin (HC) WINDLACE MACHINE OPERATOR THIN PREP PAP AND HPV DNA - AGE 25 AND OVER ([facility]) Routine 09/16/2024 9:45 AM CDT Screening for cervical cancer LC HCV ANTIBODY RFX TO QUANT PCR Routine 12/03/2022 2:03 PM FORGING DIE SINKER Elevated LFTs ANTI HIV 1/2 Routine 06/04/2016 11:34 AM CDT Less than 8 weeks gestation of (HC) from Last 3 Months or Most Recently Relevant to Health Maintenance Results * POCT Urinalysis Dipstick Only [[id number]] (06/09/2025 12:02 PM CDT) PH 7.0 5.0 - 8.0 [facility] SPECIFIC GRAVITY < OR = 1.005 1.001 - 1.035 [facility] Comment: Specific [employer] values resulted are outside the analytical measurement range of this device. Recommend repeat/additional testing as clinically indicated. GLUCOSE NEGATIVE NEGATIVE [facility] BILIRUBIN NEGATIVE NEGATIVE [facility] KETONES NEGATIVE NEGATIVE [facility] OCCULT BLOOD NEGATIVE NEGATIVE [facility] PROTEIN NEGATIVE NEGATIVE [facility] NITRITE NEGATIVE NEGATIVE [facility] LEUKOCYTE ESTERASE NEGATIVE NEGATIVE [facility] Urine URINE SPECIMEN / Unknown 06/09/2025 12:02 PM CDT 06/09/2025 12:02 PM CDT Stacy Telles MD URINE Final Resul t [facility] [address] [place] [address], [facility] [address] [place] [address] * URINALYSIS MICROSCOPIC [[id number]] - routine (06/09/2025 11:51 AM CDT) RBC 0-2 0-2, None Seen /HPF 06/09/2025 10:59 PM CDT [facility] WBC 0-2 0-2, 3-5, None Seen /HPF 06/09/2025 10:59 PM CDT [facility] BACTERIA Rare None Seen, Rare, Few Bacteria/H PF 06/09/2025 10:59 PM CDT [facility] EPITHELIAL CELLS Few None Seen, Few Epi/HPF 06/09/2025 10:59 PM CDT [facility] HYALINE CASTS 0-2 0-2, 3-5 /LPF 06/09/2025 10:59 PM CDT [facility] Urine URINE SPECIMEN / Unknown Non-Blood / Unknown 06/09/2025 11:51 AM CDT 06/09/2025 12:01 PM CDT Stacy Telles MD URINE Final Resul t Performing Organization Address City/[facility]/ZIP Co de Phone Number [facility] [address] [place] [address], [place] * URINE CULTURE [[id number]] (06/09/2025 11:51 AM CDT) CULTURE <10,000 CFU/mL multiple organisms 06/11/2025 3:11 PM CDT [facility] Urine URINE SPECIMEN / Unknown Non-Blood / Unknown 06/09/2025 11:51 AM CDT 06/09/2025 12:01 PM CDT Stacy Telles MD MICROBIOLOGY Final Resul t Performing Organization Address City/[facility] Co de Phone Number [facility] [address] [place] [address], [place] * (ABNORMAL) COMP METABOLIC PANEL (06/09/2025 11:18 AM CDT) GLUCOSE 96 65 - 99 mg/dL [facility] Comment: Fasting reference interval UREA NITROGEN (BUN) 11 7 - 25 mg/dL [facility] CREATININE 0.72 0.50 - 0.99 mg/dL [facility] EGFR 108 > OR = 60 mL/min/1. 73m2 [facility] BUN/CREATININE RATIO SEE NOTE: 6 - 22 (calc) [facility] Comment: Not Reported: BUN and Creatinine are within reference range. SODIUM 138 135 - 146 mmol/L [facility] POTASSIUM 4.6 3.5 - 5.3 mmol/L [facility] CHLORIDE 104 98 - 110 mmol/L [facility] CARBON DIOXIDE 23 20 - 32 mmol/L [facility] CALCIUM 10.0 8.6 - 10.2 mg/dL [facility] PROTEIN, TOTAL 7.2 6.1 - 8.1 g/dL [facility] ALBUMIN 4.7 3.6 - 5.1 g/dL [facility] GLOBULIN 2.5 1.9 - 3.7 g/dL (calc) [facility] ALBUMIN/GLOBULIN RATIO 1.9 1.0 - 2.5 (calc) [facility] BILIRUBIN, TOTAL 0.4 0.2 - 1.2 mg/dL [facility] ALKALINE PHOSPHATASE 145(H) 31 - 125 U/L [facility] AST 14 10 - 30 U/L [facility] ALT 18 6 - 29 U/L [facility] Blood BLOOD SPECIMEN / Unknown 06/09/2025 11:18 AM CDT 06/09/2025 11:18 AM CDT Stacy Telles MD CHEMISTRY Final Resul t Performing Organization Address City/[facility]/ZIP Co de Phone Number [facility] [address] [place] [address], [place] [phone] [facility] [address] [place] [address] * POCT Hemoglobin A1C Monitoring (06/09/2025 11:17 AM CDT) POC HEMOGLOBIN A1C 5.4 <6.0 % OF TOTAL HGB [facility] Comment: Any point of care results exhibiting inconsistency with the patient's clinical status should be repeated using a different testing method. Blood BLOOD SPECIMEN / Unknown 06/09/2025 11:17 AM CDT 06/09/2025 11:17 AM CDT us Stacy Telles MD CHEMISTRY Final Resul t [facility] [address] [place] [address], [place] [phone] [facility] [address] [place] [address] * WINDLACE MACHINE OPERATOR THIN PREP PAP AND HPV DNA REFLEX HPV 16/18 - AGE 25 AND OVER ([facility]) [[id number]] (09/16/2024 9:45 AM CDT) CLINICAL INFORMATION [facility] Comment:None given LMP [facility] Comment:S/P ABLATION PREV. PAP [facility] Comment:2020 PREV. BX [facility] Comment:NONE SOURCE WINDLACE MACHINE OPERATOR [facility] Comment:Cervix STATEMENT OF ADEQUACY [facility] Comment: Satisfactory for evaluation. Endocervical/transformation zone component present. INTERPRETATION/RESU LT [facility] Comment: Cytology Results: Negative for intraepithelial lesion or malignancy. COMMENT [facility] Comment: This Pap test has been evaluated with computer assisted technology. ACOUSTIC INTELLIGENCE SPECIALIST [facility] Comment: JXL, CT(ASCP) CT Screening Location: [address] [address] THINPREP TIS PAP ALWAYS MESSAGE [facility] Comment: EXPLANATORY NOTE: The Pap is a screening test for cervical cancer. It is not a diagnostic test and is subject to false negative and false positive results. It is most reliable when a satisfactory sample, regularly obtained, is submitted with relevant clinical findings and history, and when the Pap result is evaluated along with historic and current clinical information. HPV HIGH RISK Not Detected NOT DETECTED [facility] Comment: Not Detected High Risk HPV types (16,18,31,33,35,39,45,51,52, 56,58,59,66,68) were not detected. Other HPV types which cause anogenital lesions may be present. The significance of the other types of HPV in malignant processes has not been established. Methodology: Real Time PCR Other (Cervical) 09/16/2024 9:45 AM CDT 09/17/2024 5:53 AM CDT us Stacy Telles MD PATHOLOGY/CYTOLOGY Final Re sult [facility] [address] [place] [address], [facility] [address] [place] [address] * LC HCV ANTIBODY RFX TO QUANT PCR (12/03/2022 2:03 PM FORGING DIE SINKER) Pathologist [facility] HCV Ab <0.1 0.0 - 0.9 s/co ratio 12/05/2022 9:06 PM FORGING DIE SINKER [facility] ([facility]) Blood BLOOD SPECIMEN / Unknown Venipuncture / Unknown 12/03/2022 2:03 PM FORGING DIE SINKER 12/03/2022 2:05 PM FORGING DIE SINKER Narrative [facility] ([facility]) - 12/05/2022 9:06 PM FORGING DIE SINKER Performed at: [address] [id number] [employer] Aide: Aaron Mccoy MD, Phone: [phone] us Stacy Telles MD LABORATORY Final Resul t [facility] [facility]) [address] [place] [address] * ANTI HIV 1/2 (06/04/2016 11:34 AM CDT) Pathologist [facility] HIV-1/HIV-2 ANTIBODY Non-Reacti ve Non-Reacti ve 06/04/2016 6:25 PM CDT [facility] Blood BLOOD SPECIMEN / Unknown Venipuncture / Unknown 06/04/2016 11:34 AM CDT 06/04/2016 11:34 AM CDT Narrative [facility] - 06/04/2016 6:25 PM CDT HIV-1 p24 and HIV-1/HIV-2 Ab not detected us Darling LEACH SEND OUTS Final R esult [facility] [address] [place] [address], [place] from Last 3 Months or Most Recently Relevant to Health Maintenance Insurance MEDICARE PB ONLY MEDICARE PART B HB ONLY MEDICARE PART A HB ONLY [place] [address] Advance Directives * Full Code (Latest Code Status on File) Date Activated Date Inactivated Comments 12/07/2021 8:38 AM 12/19/2021 11:23 AM Question Answer Comments Code Status Discussion: Reviewed Preferences * Full Code Date Activated Date Inactivated Comments 12/07/2021 6:47 AM 12/07/2021 8:38 AM Question Answer Comments Code Status Discussion: Unable to Assess Preferences, Provider to review later * Full Code Date Activated Date Inactivated Comments 10/13/2021 8:48 AM 10/30/2021 4:46 PM Question Answer Comments Code Status Discussion: Reviewed Preferences * Full Code Date Activated Date Inactivated Comments 10/12/2021 7:28 PM 10/13/2021 8:48 AM Question Answer Comments Code Status Discussion: Unable to Assess Preferences, Provider to review later * Full Code Date Activated Date Inactivated Comments 11/01/2013 5:45 AM 11/02/2013 2:41 AM Care Teams [employer] Operator Relationship Specialty Start Date End Date Stacy Telles MD [address] [place] [address] PCP - General Family Practice 10/06/18 Betito Ying MD [address] [facility] [address] [place] [address] Consulting Physician Surgery - General 12/28/24 Yessi Espana, RN [address] [facility] [address] [place] [id number] [employer] Registered Nurse 12/28/24
[2025-07-03 21:07] LABS: Appearance Urine Clear (Clear)
[2025-07-03 21:17] LABS: Cannabinoid Screen Urine Negative (Negative); Methamphetamines Screen Urine Negative (Negative); Tricyclic Antidepressant Urine Negative (Negative)
[2025-07-03 21:43] LABS: Ur HCG Qualitative* Negative (Negative)
--- NOTE | 2025-07-03 21:46 | ED.GENADULT ---
HPI - General Adult General Chief complaint: Psychiatric Problem/Disorder Stated complaint: Medication complications Time Seen by Provider: 07/03/25 21:37 History of Present Illness HPI narrative: Pt is concerned about taking 375mg (75 of 5mg tablets) of Zyprexa last night around [id number]. She did this because she wanted to fall asleep and not wake up again. Pt slept from shortly after the time of ingestion until 1900 today. Pt is currently a little bit dizzy, has brain fog, and has shaking in her hands. Pt is most concerned about residual side effects. 40-year-old woman pending to the emergency department following an overdose. This was approximately 24 hours ago. She says that she was thinking that she would like to fall asleep and not wake up for a while is how she for raise it to me during our interview. She has had a history of bipolar disorder, mixed she thinks. Has been evaluated or hospitalized for what sounds like more manic symptoms in the past but does also struggle with depression. Is living independently oral part min. Has a couple of cats 1 of whom is elderly she is a little worried about. She is accompanied here by a friend who she called when she woke up this evening about 3 hours prior to this interview at 7:00 p.m.. She is feeling like she has a bit of brain for auger feeling ?discombobulated she says. Had a strange feeling of needing to feel like needing to know what it felt like to have a stomach full of pills. Does not feel suicidal now and is anticipating seeing her psychiatrist in 3 days. She has otherwise been sleeping well. She has not been hallucinating visually or aurally. She would normally prefer to go to a crisis center as they tend to be better at addressing the mental health aspect but they did contact poison Control and with concerns of potential problems from overdose and needing assessment in this regard, have been recommended to present to the emergency department. Other major symptom is that she is tired. Friend Emily describes her as slurring her speech a little bit in being tremulous. Joan later discusses how she cannot quite explain why this happened. See does emphasize that she feels this was a lapse in judgment. She notes that in 2 days time she does have a presentation related to her work that she is looking forward to as well as again meeting with her psychiatrist in the middle of the week and a reunion later and that her cats likely miss and need her. Mother is in a nearby town. We contacted poison Control who recommended evaluation until less symptomatic. Related Data Home Medications ?Medication ?Instructions ?Recorded ?Confirmed albuterol sulfate 90 mcg/actuation 2 puff inhalation Q4H PRN wheezing 02/10/23 07/03/25 aerosol inhaler (Ventolin HFA) econazole nitrate 1 % topical cream applic topical DAILY 02/10/23 glycopyrrolate 1 mg tablet mg PO 02/10/23 lisinopril 10 mg tablet 10 mg PO DAILY 02/10/23 07/03/25 metformin 500 mg tablet,extended 500 mg PO DAILY 07/18/23 07/03/25 release 24 hr propranolol 60 mg capsule,24 60 mg PO DAILY 07/18/23 07/03/25 hr,extended release duloxetine 20 mg capsule,delayed 20 mg PO DAILY 07/03/25 07/03/25 release duloxetine 60 mg capsule,delayed 60 mg PO DAILY 07/03/25 07/03/25 release lamotrigine 200 mg tablet 200 mg PO DAILY 07/03/25 07/03/25 loratadine 10 mg tablet 10 mg PO DAILY 07/03/25 07/03/25 oxybutynin chloride 5 mg 5 mg PO DAILY 07/03/25 07/03/25 tablet,extended release 24 hr risperidone 0.25 mg tablet 0.25 mg PO DAILY 07/03/25 07/03/25 risperidone 0.5 mg tablet 0.5 mg PO DAILY 07/03/25 07/03/25 rosuvastatin 5 mg tablet 5 mg PO QPM 07/03/25 07/03/25 tirzepatide 5 mg/0.5 mL 5 mg subcut 07/03/25 subcutaneous pen injector (Jaceunheatherro) Previous Rx's ?Medication ?Instructions ?Recorded oxycodone 5 mg tablet 5 mg PO Q6H PRN pain #20 tabs 07/18/23 Allergies Allergy/AdvReac Type Severity Reaction Status Date / Time diphenhydramine Allergy Mild Anxiety Verified 07/18/23 01:32 Review of Systems Status of ROS: Reports: 6 or more systems reviewed and unremarkable except as noted in History and below PFSH PFSH Social History Smoking Status: Heavy tobacco smoker What tobacco products do you use: cigarettes Smoking packs per day: 1 Smoking cigarettes per day: 20.0 Years smoked: 10 Smoking pack-years: 10.00 Do you use any of these nicotine containing products: None Second hand tobacco smoke exposure: No How often do you have a drink containing alcohol: 2-3 times a week How many standard drinks containing alcohol do you have on a typical day: 1 or 2 How often do you have six or more drinks on one occasion: Never AUDIT-C Alcohol total score: 3 Non-prescribed substance use: denies use service: No Exam Narrative: Exam Narrative: Calm. Thoughtful. Seems a little distracted maybe a little confused. A little tremulous. Moving all extremities though otherwise without difficulty and with good strength. No nystagmus. Breathing easily. Heart is tachycardic in regular rhythm without murmur rub or gallop. Lungs are clear. Oropharynx is unremarkable. No indication of self-harm on her person. Const: Vital Signs, click to edit/add: Vital Signs - 24 hr 07/03/25 21:01 07/03/25 22:01 07/03/25 22:02 Temperature 98.5 F Pulse Rate 123 H 123 H Pulse Rate [Pulse Oximeter] 128 H Respiratory Rate 32 H 17 31 H Blood Pressure 193/96 H Blood Pressure [Ri ght Upper Arm] 157/85 H Pulse Oximetry 94 92 94 Oxygen Delivery Me thod Room Air 07/03/25 22:17 07/03/25 22:30 07/03/25 22:32 Temperature Pulse Rate 119 H 109 H 105 H Pulse Rate [Pulse Oximeter] Respiratory Rate 34 H 26 H 20 Blood Pressure 162/113 H 133/75 Blood Pressure [Ri ght Upper Arm] Pulse Oximetry 93 95 95 Oxygen Delivery Me thod 07/03/25 22:46 07/03/25 22:51 07/03/25 23:00 Temperature Pulse Rate 113 H 100 Pulse Rate [Pulse Oximeter] Respiratory Rate 31 H 27 H Blood Pressure 154/82 H Blood Pressure [Ri ght Upper Arm] Pulse Oximetry 91 98 92 Oxygen Delivery Me thod 07/03/25 23:01 07/03/25 23:16 07/03/25 23:32 Temperature Pulse Rate 115 H 107 H 106 H Pulse Rate [Pulse Oximeter] Respiratory Rate 25 H 25 H 26 H Blood Pressure 150/80 H 143/75 H Blood Pressure [Ri ght Upper Arm] Pulse Oximetry 92 92 94 Oxygen Delivery Me thod 07/03/25 23:46 07/04/25 00:00 07/04/25 00:03 Temperature Pulse Rate 100 111 H Pulse Rate [Pulse Oximeter] Respiratory Rate 27 H 25 H 19 Blood Pressure 148/83 H 190/99 H Blood Pressure [Ri ght Upper Arm] Pulse Oximetry 90 94 Oxygen Delivery Me thod 07/04/25 00:16 07/04/25 00:30 07/04/25 00:31 Temperature Pulse Rate 104 H 102 H 102 H Pulse Rate [Pulse Oximeter] Respiratory Rate 21 27 H 34 H Blood Pressure 151/69 H 128/67 Blood Pressure [Ri ght Upper Arm] Pulse Oximetry 91 92 92 Oxygen Delivery Me thod 07/04/25 00:46 07/04/25 01:00 07/04/25 01:01 Temperature Pulse Rate 101 H 96 98 Pulse Rate [Pulse Oximeter] Respiratory Rate 19 27 H 25 H Blood Pressure 144/69 H 146/77 H Blood Pressure [Ri ght Upper Arm] Pulse Oximetry 90 90 90 Oxygen Delivery Me thod 07/04/25 01:16 07/04/25 01:30 07/04/25 01:31 Temperature Pulse Rate 96 101 H 101 H Pulse Rate [Pulse Oximeter] Respiratory Rate 23 22 24 Blood Pressure 140/80 H 150/87 H Blood Pressure [Ri ght Upper Arm] Pulse Oximetry 90 90 90 Oxygen Delivery Me thod 07/04/25 01:46 07/04/25 02:00 07/04/25 02:02 Temperature Pulse Rate 101 H 101 H 108 H Pulse Rate [Pulse Oximeter] Respiratory Rate 20 20 25 H Blood Pressure 143/79 H 137/88 Blood Pressure [Ri ght Upper Arm] Pulse Oximetry 91 Oxygen Delivery Me thod 07/04/25 02:16 07/04/25 02:30 07/04/25 02:31 Temperature Pulse Rate 104 H 100 102 H Pulse Rate [Pulse Oximeter] Respiratory Rate 21 19 19 Blood Pressure 121/61 125/69 Blood Pressure [Ri ght Upper Arm] Pulse Oximetry 94 94 94 Oxygen Delivery Me thod 07/04/25 02:46 07/04/25 03:00 07/04/25 03:01 Temperature Pulse Rate 104 H 101 H 101 H Pulse Rate [Pulse Oximeter] Respiratory Rate 20 20 20 Blood Pressure 126/66 123/69 Blood Pressure [Ri ght Upper Arm] Pulse Oximetry 91 91 91 Oxygen Delivery Me thod 07/04/25 03:16 07/04/25 03:30 07/04/25 03:31 Temperature Pulse Rate 107 H 101 H 98 Pulse Rate [Pulse Oximeter] Respiratory Rate 24 19 20 Blood Pressure 130/69 129/68 Blood Pressure [Ri ght Upper Arm] Pulse Oximetry 91 90 90 Oxygen Delivery Me thod 07/04/25 03:46 07/04/25 04:00 07/04/25 04:01 Temperature Pulse Rate 100 98 100 Pulse Rate [Pulse Oximeter] Respiratory Rate 19 14 20 Blood Pressure 126/69 127/63 Blood Pressure [Ri ght Upper Arm] Pulse Oximetry 90 92 92 Oxygen Delivery Me thod 07/04/25 04:16 07/04/25 04:30 07/04/25 04:31 Temperature Pulse Rate 106 H 98 99 Pulse Rate [Pulse Oximeter] Respiratory Rate 20 19 19 Blood Pressure 139/69 126/64 Blood Pressure [Ri ght Upper Arm] Pulse Oximetry 91 91 91 Oxygen Delivery Me thod 07/04/25 04:47 07/04/25 05:00 07/04/25 05:02 Temperature Pulse Rate 99 91 101 H Pulse Rate [Pulse Oximeter] Respiratory Rate 21 34 H 21 Blood Pressure 149/81 H 146/77 H Blood Pressure [Ri ght Upper Arm] Pulse Oximetry 92 92 93 Oxygen Delivery Me thod 07/04/25 05:17 07/04/25 05:30 07/04/25 05:32 Temperature Pulse Rate 100 93 96 Pulse Rate [Pulse Oximeter] Respiratory Rate 21 18 20 Blood Pressure 134/68 132/70 Blood Pressure [Ri ght Upper Arm] Pulse Oximetry 91 90 90 Oxygen Delivery Me thod Documenting provider has reviewed patient's vital signs: yes Course Vital Signs Vital signs: Initial Vital Signs Temperature 98.5 F 07/03/25 21:01 Temperature Source Temporal Artery Scan 07/03/25 21:01 Pulse Rate 128 H 07/03/25 21:01 Respiratory Rate 32 H 07/03/25 21:01 Blood Pressure 157/85 H 07/03/25 21:01 Blood Pressure Mean 109 H 07/03/25 21:01 Blood Pressure Position Sitting 07/03/25 21:01 Pulse Oximetry 94 07/03/25 21:01 Oxygen Delivery Method Room Air 07/03/25 21:01 Vital Signs Temperature 98.5 F 07/03/25 21:01 Pulse Rate 128 H 07/03/25 21:01 Respiratory Rate 32 H 07/03/25 21:01 Blood Pressure 157/85 H 07/03/25 21:01 Pulse Oximetry 94 07/03/25 21:01 Oxygen Delivery Method Room Air 07/03/25 21:01 Temperature 98.5 F 07/03/25 21:01 Pulse Rate 96 07/04/25 05:32 Respiratory Rate 20 07/04/25 05:32 Blood Pressure 132/70 07/04/25 05:32 Pulse Oximetry 90 07/04/25 05:32 Oxygen Delivery Method Room Air 07/03/25 21:01 Medications Administered Medications: Discontinued Medications Generic Name Dose Route Start Last Admin Trade Name Freq PRN Reason Stop Dose Admin Sodium Chloride 1,000 mls @ 1,000 mls/hr 07/03/25 21:47 07/04/25 01:20 0.9 % Sodium Chloride 1000 Ml IV 07/03/25 22:46 Infused .Q1H ONE Infusion Medical Decision Making MDM Narrative Medical decision making narrative: I do not believe that Joan is currently suicidal. Concern of course is the impulsivity this action and lack of clarity as to why this happened. She does exhibit anticipatory thought and has already made plans for continued mental health care, anticipating her work and social activities. Will clear for evidence other ingestion and continue to assess her suicidality risk. I would anticipate once medically cleared could be discharged home. Anticipating would be returning with accompanying friend. Labs were overall unremarkable. Monitored on child monitor oximetry during time in emergency department intimately slept most of the night here pending transportation. Is no longer tachycardic, longer tremulous. Continues to deny suicidality. Discussed with friend who accompanied here plans that they had mutually arranged for related follow-up. I believe is safe for discharge. See patient discharge plan for for further discussion. I am happy you're feeling better. Please follow-up with your psychiatrist on Wednesday as scheduled. Also reschedule please with your therapist as discussed. Good luck with your work presentation. If after talking with friends, family, therapist you find yourself feeling unsafe, can go to crisis center as you had mentioned or certainly return to the emergency department if necessary. Medical Records Medical records reviewed: Yes I reviewed the patient's medical records Lab Data Lab results reviewed: Yes I reviewed the patient's lab results Labs: Lab Results 07/03/25 07/03/25 07/03/25 Range/Units 20:59 21:00 22:00 WBC 10.77 (4.50-11.00) K/uL RBC 5.26 H (4.00-5.20) m/uL Hgb 16.4 H (12.0-16.0) gm/dL Hct 48.4 (33.0-51.0) % MCV 92 (80-100) fL MCH 31 (26-34) pg MCHC 34 (32-36) gm/dL RDW Coeff of Zeina 13.0 (11.5-15.5) % Plt Count 291 (140-440) K/uL Neut % (Auto) 68.4 (42.0-72.0) % Lymph % (Auto) 23.4 (20-44) % Seward % (Auto) 6.6 (0.0-11.0) % Eos % (Auto) 0.9 (0.0-7.0) % Baso % (Auto) 0.2 (0.0-3.0) % Neut # (Auto) 7.37 H (1.7-7.0) K/uL Lymph # (Auto) 2.52 (0.90-2.90) K/uL Seward # (Auto) 0.70 (0.00-0.90) K/UL Eos # (Auto) 0.10 (0.00-0.50) K/uL Baso # (Auto) 0.02 (0.00-0.30) K/uL Abs Immat Gran (auto) 0.05 (0.00-0.30) K/uL Imm/Tot Granulo (auto) 0.5 % Sodium 140 (135-149) mmol/L Potassium 4.7 (3.6-5.1) mmol/L Chloride 107 (96-114) mmol/L Carbon Dioxide 21 (20-32) mmol/L Anion Gap 12 (7-15) mEq/L BUN 8 (5-24) mg/dL Creatinine 0.7 (0.5-1.5) mg/dL Estimated Creat Clear 110.53 Estimated GFR 111 ml/min Glucose 102 (60-115) mg/dL Calcium 10.4 (8.4-10.6) mg/dL Total Bilirubin 0.8 (0.1-1.5) mg/dL Direct Bilirubin 0.5 (0.0-0.5) mg/dL AST 31 (12-35) U/L ALT 32 (4-35) U/L Alkaline Phosphatase 150 (40-150) U/L Total Protein 8.1 (6.0-8.3) g/dL Albumin 4.9 (3.3-5.0) g/dL TSH 1.960 (0.270-4.20) uIU/mL Urine Color Yellow (Yellow) Urine Appearance Clear (Clear) Urine pH 6.0 (5.0-8.5) Ur Specific Butler <= 1.005 (1.000-1.030) Urine Protein Negative (Negative) Urine Glucose (UA) Negative (Negative) Urine Ketones Negative (Negative) Urine Blood Negative (Negative) Urine Nitrite Negative (Negative) Urine Bilirubin Negative (Negative) Urine Urobilinogen 0.2 (0.2-1.0) Ur Leukocyte Esterase Negative (Negative) Urine RBC 0-2 (0-2) Urine WBC 0-2 (0-5) Ur Squamous Epith Cells Few (None-Few) Amorphous Sediment Few A (None) Urine Bacteria Few A (None) Urine HCG, Qual Negative (Negative) Salicylates < 1.0 L (1.0-10) mg/dL Urine Opiates Screen Negative (Negative) Ur Buprenorphine Scrn Negative (Negative) Ur Oxycodone Screen Negative (Negative) Urine Methadone Screen Negative (Negative) Acetaminophen < 10.0 (10.0-30.0) ug/mL Ur Barbiturates Screen Negative (Negative) U Tricyclic Antidepress Negative (Negative) Ur Phencyclidine Scrn Negative (Negative) Ur Amphetamines Screen Negative (Negative) U Methamphetamines Scrn Negative (Negative) U Benzodiazepines Scrn Negative (Negative) Urine Cocaine Screen Negative (Negative) U Marijuana (THC) Screen Negative (Negative) Ur Drug Screen Comment See Note Ethyl Alcohol < 0.01 (0.01-0.03) % ECG Data Attestation: I personally reviewed and interpreted this ECG as follows: (Sinus tachycardia 119) Discharge Plan Discharge Clinical Impression: Overdose Patient Disposition: Home w/ Parent or Adult Condition: Improved Additional Instructions: I am happy you're feeling better. Please follow-up with your psychiatrist on Friday as scheduled. Also reschedule please with your therapist as discussed. Good luck with your work presentation. If after talking with friends, family, therapist you find yourself feeling unsafe, can go to crisis center as you had mentioned or certainly return to the emergency department if necessary. Prescriptions: No Action glycopyrrolate 1 mg tablet PO lisinopril 10 mg tablet 10 mg PO DAILY econazole nitrate 1 % cream topical DAILY albuterol sulfate [Ventolin HFA] 90 mcg/actuation HFA aerosol inhaler 2 puff INHALATION Q4H PRN (Reason: wheezing) propranolol 60 mg capsule,extended release 24 hr 60 mg PO DAILY metformin 500 mg tablet extended release 24 hr 500 mg PO DAILY oxycodone 5 mg tablet 5 mg PO Q6H PRN (Reason: pain) Qty: 20 0RF lamotrigine 200 mg tablet 200 mg PO DAILY risperidone 0.25 mg tablet 0.25 mg PO DAILY oxybutynin chloride 5 mg tablet extended release 24hr 5 mg PO DAILY loratadine 10 mg tablet 10 mg PO DAILY risperidone 0.5 mg tablet 0.5 mg PO DAILY rosuvastatin 5 mg tablet 5 mg PO QPM duloxetine 20 mg capsule,delayed release(DR/EC) 20 mg PO DAILY duloxetine 60 mg capsule,delayed release(DR/EC) 60 mg PO DAILY Mounjaro 5 mg/0.5 mL pen injector 5 mg subcut Follow Up/Referrals: Stacy Telles MD [Primary Care Provider, Family Practice] Stand Alone Forms: WEALTH at work Info Instructions
[2025-07-03 22:07] LABS: Hematocrit* 48.4 % (33.0-51.0); Hemoglobin* 16.4 gm/dL (12.0-16.0); Immature Granulocytes Abs Auto 0.05 K/uL (0.00-0.30); Immature Granulocytes Pct Auto 0.5 %; Lymphocytes Absolute Auto 2.52 K/uL (0.90-2.90); Mean Corpuscular HGB Conc 34 gm/dL (32-36); Mean Corpuscular Hemoglobin 31 pg (26-34); Mean Corpuscular Volume 92 fL (80-100); RDW Coefficient of Variation % 13.0 % (11.5-15.5); Red Blood Count* 5.26 m/uL (4.00-5.20); White Blood Count* 10.77 K/uL (4.50-11.00)
[2025-07-03 22:09] LABS: Slide Review Reflex No
[2025-07-03 22:16] LABS: Albumin* 4.9 g/dL (3.3-5.0); Chloride* 107 mmol/L (96-114)
[2025-07-03 22:17] LABS: Potassium* 4.7 mmol/L (3.6-5.1); Sodium* 140 mmol/L (135-149)
[2025-07-03 22:19] LABS: Alanine Aminotransferase* 32 U/L (4-35); Anion Gap 12 mEq/L (7-15); Aspartate Amino Transferase* 31 U/L (12-35); Blood Urea Nitrogen* 8 mg/dL (5-24); Carbon Dioxide* 21 mmol/L (20-32); Creatinine* 0.7 mg/dL (0.5-1.5); Est. Creatinine Clearance* 110.53; Estimated Glomerular Filt Rate 111 ml/min
[2025-07-03 22:20] LABS: Alkaline Phosphatase* 150 U/L (40-150); Bilirubin Direct* 0.5 mg/dL (0.0-0.5); Bilirubin Total* 0.8 mg/dL (0.1-1.5); Calcium* 10.4 mg/dL (8.4-10.6); Glucose* 102 mg/dL (60-115); Total Protein* 8.1 g/dL (6.0-8.3)
[2025-07-03 22:23] LABS: Acetaminophen* < 10.0 ug/mL (10.0-30.0); Ethanol* < 0.01 % (0.01-0.03); Salicylate* < 1.0 mg/dL (1.0-10)
[2025-07-04] VITALS (35 sets, daily range): BP systolic 121–190; BP diastolic 61–99; PULSE 91–111; RESP 14–34; O2SAT 90–94
== END 2025-07-04 07:10 | disposition home or self-care (01) ==
PROVIDERS: Emergency Provider Family Medicine; PCP Family Medicine
DX: T43.592A Poisoning by other antipsychotics and neuroleptics, intentional self-harm, initial encounter (principal); R47.81 Slurred speech; R00.0 Tachycardia, unspecified; F31.9 Bipolar disorder, unspecified
CPT/HCPCS: 36415; 80048; 80076; 80143; 80179; 80306; 81001; 81025; 82077; 84443; 85025; 87086; 93005; 94761; 96360; 96361; 99284; 99285; J7030

== ENCOUNTER 2025-10-18 17:42 | Emergency (ER) | payer MEDICARE, SELFPAY ==
--- OUTSIDE RECORDS SUMMARY | 2025-10-18 17:45 | XMS_ITS | Continuity of Care Document ---
Author Organization [facility] Address [address] [place] [address] Assessment Encounter Date Assessment Date Assessment LastModified by Organization Details LastModified Time 09/23/2025 09/23/2025 ASSESSMENT: Patient is a good candidate for conservative care and the prognosis is for a favorable outcome that achieves the patients' goals. We discussed etiology, activity modifications, home care, and other treatment options. Initially, it is recommended that the patient receive in-office treatment 1 times per week for 8 weeks at which time a re-evaluation will be performed to determine an appropriate change in plan. Initially, treatment will focus on joint manipulation to restore range of motion and reduce pain. We will slowly progress to therapeutic exercises and activities to improve function, strength, and stability may also be used as warranted. If the patient is not responding as expected, more invasive procedures will be discussed along with a referral. All considerations above were discussed with the patient and questions answered to satisfaction. If the patient should have any additional questions, or should the condition evolve or worsen, the patient should not hesitate to contact our office. ASSESSMENT: Patient is a good candidate for conservative care and the prognosis is for a favorable outcome that achieves the patients' goals. We discussed etiology, activity modifications, home care, and other treatment options. Initially, it is recommended that the patient receive in-office treatment 1 times per week for 8 weeks at which time a re-evaluation will be performed to determine an appropriate change in plan. Initially, treatment will focus on joint manipulation to restore range of motion and reduce pain. We will slowly progress to therapeutic exercises and activities to improve function, strength, and stability may also be used as warranted. If the patient is not responding as expected, more invasive procedures will be discussed along with a referral. All considerations above were discussed with the patient and questions answered to satisfaction. If the patient should have any additional questions, or should the condition evolve or worsen, the patient should not hesitate to contact our office. ecram Not available 09/23/2025 12:07:16 Plan of Treatment Reminders Order Date Submit Date Provider Last Modified By Organization Details Last Modified Time Details Appointments None record ed. Lab None record ed. Referral None record ed. Procedures None record ed. Surgeries None record ed. Imaging None record ed. Medication Orders None record ed. Patient TargetsNo targets recorded. Patient InstructionsNo instructions recorded. Reason for Referral None Reported. Problems Name Problem SNOMED Code Status Onset Date Resolution Date Notes Provider Name and Address Organization Details Recorded Time Somatic dysfunction of sacral spine 230780285 Active 2024 Not Available [facility] 5 08:16:30 Low back pain 573495489 Active 2024 Not Available [facility] 5 08:16:30 Thoracic segmental dysfunction 201899085 Active 2024 Pilo Soalres DC [address] [place] [address], [place], [address] , [facility] 5 12:07:14 Lumbar segmental dysfunction 433880254 Active 2024 Not Available [facility] 5 08:16:30 Neck pain 44180475 Active 2024 Not Available [facility] 5 08:16:30 Cervical segmental dysfunction 079492071 Active 2024 Not Available [facility] 5 08:16:30 Problem Notes None recorded. Procedures Surgical History Date Name Laterality Status Provider Name and Address Organization Details Recorded Time 5 44658: Spinal manipulation , 3 to 4 regions completed Pilo Solares DC [address] [place] [address], [place], [address], [facility] 09/23/2025 12:09:20 Imaging Results None recorded. Procedure Notes None recorded. Medical Equipment None Reported. Allergies Allergen ID Allergen Name Allergen Category Reaction Reaction Severity Criticality Documentation Date Start Date Code Code System Note Provider Name and Address Organization Details Recorded Time 9421 diphenhyd ramine medicatio n Not available Not available low 09/23/20252022 3498 RxNorm Not Available aniya - External Data Service - prod 10:31:02 Vitals None Recorded Social History None recorded. Functional Status None recorded. Mental Status None recorded. Family History Nothing Reported. Medical History No medical history recorded. Gynecological HistoryNo gynecological history recorded. Obstetrics History GPAL:G 0 P 0 0 0 0 Past Encounters Encounter ID Performer Location Encounter Start Date Encounter Closed Date Diagnosis/Indication Diagnosis SNOMED-CT Code Diagnosis ICD10 Code Diagnosis IMO Codes Diagnosis Note [id number] ALAN Quick [facility] [address] [place] [address] 09/23/2025 10:30:16 09/23/2025 12:16:22 Lumbar segmental dysfunction 980648442 M99.03 Low back pain 916972877 M54.50 Somatic dy sfunction of sacral spine 933192109 M99.04 Thoracic s egmental dysfunction 059830146 M99.02 Cervical s egmental dysfunction 927482246 M99.01 Neck pain 35254174 M54.2 Health Concerns Section Related Observation LastModified by Organization Detai ls LastModified Time None Recorded Concern Status LastModified by Organization Details LastModified Time None Recorded Payers Encounter Date Sequence Insurance Name Policy Number Policy Ventura Covered Member ID Ventura Member ID Guarantor Name 09/23/2025 1 MEDICARE B-[place]: [employer] [facility] Joan Bird [id number] 2 Joan Bird Notes Date Note Type Note Provider Name and Address Organization Details Recorded Time 09/23/2025 text/html HPI - Cervical SpineReported by PatientHPIFor location, patient reportsbilateral. For quality, patient reportsaching. For severity, patient reportsmoderate. For duration, patient reports2 weeks. For timing, patient reportsgradual. For alleviating factors, patient reportsnothing helps. For aggravating factors, patient reportsbendingandtwi sting/turning. For associated symptoms, patient reportsno numbness/tingling. HPI - Lumbar SpineReported by PatientHPIFor location, patient reportsleft(with radiation to knee). For quality, patient reportsaching. For severity, patient reportsmoderate. For timing, patient reportsabrupt. For duration, patient reportsacute. For context, patient reportsbending,lifti ng, andtwisting. For aggravating factors, patient reportsstanding,lift ing,twisting,bending /squatting, andpushing/pulling. For alleviating factors, patient reportsrest. Pilo Solares DC [address], [place], [address], [facility] 09/23/2025 12:09:42 OBGyn Episode No OBEpisode recorded.
--- OUTSIDE RECORDS SUMMARY | 2025-10-18 17:45 | XMS_ITS | Data Portability ---
Author Organization [place] [facility], [employer] - [employer] [facility] Address [address] [place] [address] Assessment Encounter Date Assessment Date Assessment LastModified [...] Recorded Time Somatic dysfunction of sacral spine 778669145 Active 2024 Not Available [facility] 5 08:16:30 Low back pain 534277687 Active 2024 Not Available [facility] 5 08:16:30 Thoracic segmental dysfunction 309012196 Active 2024 Pilo Solares DC [address] [place] [address], [place], [address] , [facility] 5 12:07:14 Lumbar segmental dysfunction 686744263 Active 2024 Not Available [facility] 5 08:16:30 Neck pain 50356810 Active 2024 Not Available [facility] 5 08:16:30 Cervical segmental dysfunction 223165796 Active 2024 Not Available [facility] 5 08:16:30 Problem Notes None recorded. Procedures Surgical History Date Name Laterality Status Provider Name and Address Organization Details Recorded Time 5 18767: Spinal manipulation , 3 to 4 regions completed Pilo Solares DC [address], [place], [address], [facility] 09/23/2025 12:09:20 Imaging Results None recorded. Procedure Notes None recorded. Medical Equipment None Reported. Allergies Allergen ID Allergen Name Allergen Category Reaction Reaction Severity Criticality Documentation Date Start Date Code Code System Note Provider Name and Address Organization Details Recorded Time 9485 diphenhyd ramine medicatio n Not available Not [...] ICD10 Code Diagnosis IMO Codes Diagnosis Note [id number] ALAN Quick [facility] [address] [place] [address] 09/23/2025 10:30:16 09/23/2025 12:16:22 Lumbar segmental dysfunction 153319964 M99.03 Low back pain 204914011 M54.50 Somatic dy sfunction of sacral spine 873207871 M99.04 Thoracic s egmental dysfunction 013838022 M99.02 Cervical s egmental dysfunction 734428204 M99.01 Neck pain 03347729 M54.2 Health Concerns Section Related Observation LastModified by Organization Detai ls LastModified Time None Recorded Concern Status LastModified by Organization Details LastModified Time None Recorded Advance Directives Directive None Recorded Payers Insurance Date Sequence Insurance Name Policy Number Policy Ventura Covered Member ID Ventura Member ID Guarantor Name 09/23/2025 1 *SELF PAY* Tien Bird 09/23/2025 1 MEDICARE B-[place]: [employer] [facility] Joan Bird [id number] 2 Joan Bird Notes Date Note Type [...] alleviating factors, patient reportsrest. Pilo Solares DC [address] [place] [address], [place], [address], [facility] 09/23/2025 12:09:42 OBGyn Episode No OBEpisode recorded.
--- OUTSIDE RECORDS SUMMARY | 2025-10-18 17:45 | XMS_ITS | Clinical Summary ---
Author Organization [employer] [facility] Address [address] [place] [address] Care Team Providers Care Mexican Food Cook Name Role Phone Betito Ying MD Unavailable [phone] Yessi Espana RN Unavailable [phone] Macie Mendoza MD Primary Care Prov ider Allergies Active Allergy Reactions Criticality Noted Date Comments Diphenhydramine Hallucinations Medium 11/08/2021 Unlisted Allergen (Include Detail In Comments) Runny Nose,Other - Describe In Comment Field Low 09/17/2021 Environmental allergies Medications nystatin powder (MYCOSTATIN) powderIndications :Candidal intertrigo Apply 1 Strip topically to affected area(s) three times daily. 60 g 3 023 Active nystatin (MYCOSTATIN) 100,000 unit/gram topical creamIndications: Skin yeast infection Apply topically to affected area(s) two times daily. 30 g 024 Active docusate (COLACE) 100 mg tablet Take 100 mg by mouth once daily. Active DULoxetine (CYMBALTA) 60 mg Delayed-release capsuleIndication s:Bipolar 1 disorder (HC) Take 1 Capsule (60 mg) by mouth once daily. 30 Capsule 024 Active OLANzapine (ZYPREXA) 5 mg tabletIndications :Bipolar 1 disorder (HC) Take 1 Tablet (5 mg) by mouth at bedtime. 15 Tablet 024 Active Additional Information Patient taking differently:5 mg OralBEDTIME PRN, Sleep, Reported on 09/23/2025 risperiDONE (RISPERDAL) 2 mg tabletIndications :Bipolar 1 disorder (HC) TAKE 1 TABLET BY MOUTH AT BEDTIME 3 Tablet 024 Active DULoxetine (CYMBALTA) 20 mg Delayed-release capsuleIndication s:Bipolar 1 disorder (HC) TAKE 1 CAPSULE (20 MG) BY MOUTH AT BEDTIME. 3 Capsule 024 Active lamoTRIgine 100 mg tablet Take 150 mg by mouth once daily. 024 Active diabetic supplies, miscellan.Indicat ions:diabetes mellitus Dispense glucose meter, test strips and lancets covered by patient insurance. Test 1 times per day. 1 Kit 024 Active lancets 32 gauge miscIndications:d iabetes mellitus As directed. Dispense item covered by pt ins. E11.9 NIDDM type II - Test 1 time/day 100 Each 11 024 Active aspirin (ECOTRIN) 81 mg enteric coated tabletIndications :Type 2 diabetes mellitus without complication, without long-term current use of insulin (HC) Take 1 Tablet (81 mg) by mouth once daily with a meal. 90 Tablet 024 Active Blood-Glucose Meter (Accu-Chek Guide Me Glucose Mtr)Indications:T ype 2 diabetes mellitus without complications (HC) DISPENSE GLUCOSE METER, TEST STRIPS AND LANCETS COVERED BY PATIENT INSURANCE. TEST 1 TIMES PER DAY. 1 Each 024 Active metroNIDAZOLE 0.75 % gelIndications:Ro sacea Apply topically to affected area(s) two times daily. 45 g 3 025 Active saliva substitute (Biotene Dry Mouth Oral Rinse) mouthwashIndicati ons:Dry mouth Swish and spit 15 mL by mouth 4 times daily if needed for Dry Mouth. 1000 mL 3 025 Active aluminum chloride (Drysol) 20 % external solutionIndicatio ns:Hyperhidrosis Apply topically to affected area(s) at bedtime. 50 mL 3 025 Active econazole nitrate cream 1 % creamIndications: Tinea versicolor APPLY TOPICALLY TO AFFECTED AREA(S) ONCE DAILY. 85 g 1 025 Active tirzepatide (MOUNJARO) 7.5 mg/0.5 mL penIndications:Ty pe 2 diabetes mellitus without complication, without long-term current use of insulin (HC) Inject 7.5 mg subcutaneous once weekly. 6 mL 1 025 Active rosuvastatin (CRESTOR) 5 mg tabletIndications :Hyperlipidemia, unspecified hyperlipidemia type Take 1 Tablet (5 mg) by mouth at bedtime. 90 Tablet 1 025 Active lisinopriL (PRINIVIL; ZESTRIL) 10 mg tabletIndications :HTN (hypertension) Take 1 Tablet (10 mg) by mouth once daily. 90 Tablet 1 025 Active propranolol ER (INDERAL LA) 60 mg Cs24 Sustained-Release capsuleIndication s:HTN (hypertension) Take 1 Capsule (60 mg) by mouth once daily. 90 Capsule 1 025 Active oxybutynin XL (DITROPAN XL) 5 mg CR tabletIndications :Urge incontinence Take 1 Tablet (5 mg) by mouth once daily. 90 Tablet 3 025 Active loratadine (CLARITIN) 10 mg tabletIndications :Seasonal allergic rhinitis due to pollen Take 1 Tablet (10 mg) by mouth once daily. 90 Tablet 1 025 Active albuterol HFA (PRO-AIR; VENTOLIN; PROVENTIL) 90 mcg/actuation inhalerIndication s:Wheezing Inhale 2 Puffs by mouth every 4 hours if needed for Shortness Of Breath (cough or wheezing). 18 g 3 025 Active fluticasone propion-salmetero L (ADVAIR) 115-21 mcg/actuation inhalerIndication s:Wheezing,FINN (dyspnea on exertion),Asthma, unspecified asthma severity, unspecified whether complicated, unspecified whether persistent (HC) INHALE 2 PUFFS BY MOUTH TWICE A DAY 3 Each 025 Active metFORMIN (GLUCOPHAGE XR) 500 mg Extended-Release tabletIndications :Type 2 diabetes mellitus without complication, without long-term current use of insulin (HC) Take 2 Tablets (1,000 mg) by mouth once daily with evening meal. 180 Tablet 1 025 Active nicotine (NICORETTE) 4 mg gumIndications:En counter for smoking cessation counseling Chew 1 Each (4 mg) every hour while awake as needed for Nicotine Craving. 380 Each 3 025 Active blood sugar diagnostic (Accu-Chek Guide test strips) stripIndications: Type 2 diabetes mellitus without complication, without long-term current use of insulin (HC) USE TO TEST 1 TIME A DAY 100 Each 3 Active amoxicillin-clavu lanate (AUGMENTIN) 875-125 mg tabletIndications :Acute non-recurrent sinusitis, unspecified location Take 1 Tablet by mouth two times daily with meals for 7 days. 14 Tablet 025 2024 Active blood sugar diagnostic (Pharmacist Choice) stripIndications: diabetes mellitus Dispense item covered by pt ins. E11.9 NIDDM type II - Test 1 time/day 100 Each 11 024 2024 Discontinued metFORMIN (GLUCOPHAGE XR) 500 mg Extended-Release tabletIndications :Type 2 diabetes mellitus without complication, without long-term current use of insulin (HC) Take 4 Tablets (2,000 mg) by mouth once daily with evening meal. Then take 4 tabs (2000 mg) once daily with evening meal thereafter 360 Tablet 1 025 2024 Discontinued(* Medication adjustment) predniSONE (DELTASONE) 20 mg tabletIndications :Acute non-recurrent sinusitis, unspecified location,Mild intermittent asthma with exacerbation (HC) Take 2 Tablets (40 mg) by mouth once daily with a meal for 3 days. 6 Tablet 025 2024 Active Problems Problem Noted Date Diagnosed Date [...] re mission, most recent episode depressed 09/25/2018 detention current use of therapeutic drug 2016 Controlled [...] Elijah Mcgowan MD for mental health care. [facility] Previous Medication Trials: Seroquel (Side Effects), Ativan (Side Effects), Lamictal, [place], Zyprexa (Side Effects), Geodon, Lunesta (Stopped Using - Not Effective), Vistaril, Trazodone, Klonopin, Abilify Past Psychiatric Hospitalizations: 08/2008: [facility] [place] (Diagnosed with Bipolar) 06/2009: [facility] 01/2011: [facility] (SI/SIB) 07/2011: [facility] History of Suicide Attempts: Deferred Brief Summary: Therapist: Tracey Dupont Previously saw Rodney Landis MD and Honorio Mosley, DESTINATION COORDINATOR - Transitioned to Dr. Mcgowan in 06/2011 [...] Encounters Date Type Department Care Team Description 10/11/2025 12:00 PM FOOTWEAR SALES ASSOCIATE Office Visit [facility] [address] [place] [address] Ayla Adams PA URI (x10 days, body aches, cough, congestion, losing voice) 10/11/2025 Travel 10/04/2025 Refill [facility] [address] [facility] [place] [address] Stacy Telles MD Refill Request (Accu-chek Guide Test Strips) 09/23/2025 1:00 PM FOOTWEAR SALES ASSOCIATE Office Visit [facility] [address] [place] [address] Macie Mendoza MD Diabetes (nights of feeling nausea, feet feel funny, lightheaded. /Blood surars 79, 81); Medication Management (taking too much metformin? ) 09/23/2025 Travel 08/25/2025 Refill [facility] [address] [place] [address] Stacy Telles MD Refill Request (Mounjaro, Fluticasone Propion-salmeterol) from Last 3 Months Immunizations Immunization Administration Dates Next Due COVID-19 vaccine (Phonetime 30mcg/0.3mL) 12YO+ JERALD-SUCROSE MD MARKV 01/30/2022,01/04/2022 DTaP [...] Date Smoking Tobacco: Every Day Cigarettes 1.5 19.9 Started: 2005; Last attempted to quit: 12/06/2024 [...] have a drink containing alcohol ? 2 09/23/2025 How many drinks containing a lcohol do you have on a typical day when you are drinking? 0 09/23/2025 Frequency of Binge Drinking Not on file 05/2025 Financial Resource Strain Answer Date R ecorded [...] on file Legal Sex Female 5:17 AM FOOTWEAR SALES ASSOCIATE Gender Identity Not on file Sexual Orientation Not on file Obstetrics History Para Term AB IAB SAB Ectopic Multiple Livin g Live Births 2 1 1 1 1 1 Date Outcome GA Total Labor Labor/2nd/3rd Weight Sex Type Anes PTL Ashanti A1 A5 Name Clin Term 6 IAB 22w 4d Delivery Location:[facility] Comments Multiple anomalies, therapeu tic D&E for 2nd Last Filed Vital Signs Vital Sign Reading Time Taken Comments Blood Pressure 136/80 10/11/2025 11:58 AM FOOTWEAR SALES ASSOCIATE Pulse 71 10/11/2025 11:58 AM FOOTWEAR SALES ASSOCIATE Temperature 36.6 C (97.8 F) 10/11/2025 11:58 AM FOOTWEAR SALES ASSOCIATE Respiratory Rate 18 12/31/2023 6:08 PM FOOTWEAR SALES ASSOCIATE Oxygen Saturation 99% 10/11/2025 11:58 AM FOOTWEAR SALES ASSOCIATE Inhaled Oxygen Concentration - - Weight 137.9 kg (304 lb) 10/11/2025 11:58 AM FOOTWEAR SALES ASSOCIATE Height 175.3 cm (5' 9.02) 01/12/2025 4:00 PM CS T Body Mass Index 44.87 01/12/2025 4:00 PM FOOTWEAR SALES ASSOCIATE Plan of Treatment Health Maintenance Due Date Last Done Comments HPV series for age 9-45 (3 - 3-dose series) 09/02/2011 06/10/2011, 05/11/2010 Tetanus booster 10/15/2023 10/15/2013, 08/17, 03/02/1996 COVID-19 vaccine series ( season) 2025 01/30/2022, 01/04/2022 Influenza Vaccine (#1) 2025 09/07/2013, 2011 Depression screening for age 12+ 09/17/2025 09/17/2024, 09/16/2024, 04/16/2023, Additional history exists BMI (ht and wt on same day) for age 18+ 01/12/2026 01/12/2025, 12/28/2024, 09/16/2024, Additional history exists Pap test for age 21-65 09/16/2029 , 10/31/2020, 10/31/2020, Additional history exists RSV vaccine for adults or (1 - 1-dose 75+ series) 2059 Hepatitis B series for 19+ Completed 02/21, 07/17/1998, 06/05/1998 HIV for age 15-65 Completed 06/04/2016, , 07/12/2010, Additional history exists Pneumococcal series for age 6-49 Completed 06/20/20 Hepatitis C screening for ag e 18-79 Completed 12/03/2022, 06/04/2016, 12/05/2015, Additional history exists Goals Goal Patient Goal Type Associated Problems Recent Progress Patient-Stated? Author BLOOD PRESSURE - Maintains BP less than 130/80 Blood Pressure No Stacy Telles MD Procedures Procedure Name Priority Date/Time Associated Diagnosis Comments BILLING SPEC THIN PREP PAP AND HPV DNA - AGE 25 AND OVER ([facility]) Routine 09/16/2024 9:45 AM CDT Screening for cervical cancer LC HCV ANTIBODY RFX TO QUANT PCR Routine 12/03/2022 2:03 PM FOOTWEAR SALES ASSOCIATE Elevated LFTs ANTI HIV 1/2 Routine 06/04/2016 11:34 AM CDT Less than 8 weeks gestation of (HC) from Last 3 Months or Most Recently Relevant to Health Maintenance Results * BILLING SPEC THIN PREP PAP AND HPV DNA REFLEX HPV 16/18 - AGE 25 AND OVER ([facility]) [[id number]] (09/16/2024 9:45 AM CDT) CLINICAL INFORMATION [employer] [facility] Comment:None given LMP [employer] [facility] Comment:S/P ABLATION PREV. PAP [employer] [facility] Comment:2019 PREV. BX [employer] [facility] [place] Comment:NONE SOURCE BILLING SPEC [employer] [facility] [place] Comment:Cervix STATEMENT OF ADEQUACY [employer] [facility] Comment: Satisfactory for evaluation. Endocervical/transformation zone component present. INTERPRETATION/RESU LT [facility] Comment: Cytology Results: Negative for intraepithelial lesion or malignancy. COMMENT [facility] Comment: This Pap test has been evaluated with computer assisted technology. GLASSWARE VERIFIER [facility] Comment: JXL, CT(ASCP) CT Screening Location: [address] [address] THINPREP TIS PAP ALWAYS MESSAGE [facility] Comment: EXPLANATORY NOTE: The Pap is [...] HPV HIGH RISK Not Detected NOT DETECTED [facility] Comment: Not Detected High Risk HPV types (16,18,31,33,35,39,45,51,52, 56,58,59,66,68) were not detected. Other HPV types which cause anogenital lesions may be present. The significance of the other types of HPV in malignant processes has not been established. Methodology: Real Time PCR Other (Cervical) 09/16/2024 9:45 AM CDT 09/17/2024 5:53 AM CDT Stacy Telles MD PATHOLOGY/CYTOLOGY Final Re sult [facility] [address] [place] [address], [address] [address] * LC HCV ANTIBODY RFX TO QUANT PCR (12/03/2022 2:03 PM FOOTWEAR SALES ASSOCIATE) HCV Ab <0.1 0.0 - 0.9 s/co ratio 12/05/2022 9:06 PM FOOTWEAR SALES ASSOCIATE [facility] Blood BLOOD SPECIMEN / Unknown Venipuncture / Unknown 12/03/2022 2:03 PM FOOTWEAR SALES ASSOCIATE 12/03/2022 2:05 PM FOOTWEAR SALES ASSOCIATE Narrative [facility] - 12/05/2022 9:06 PM FOOTWEAR SALES ASSOCIATE Performed at: [address] [place] [id number] Outsole Cutter Machine: Aaron Mccoy MD, Phone: [phone] us Stacy Telles MD LABORATORY Final Resul t [facility] ([facility]) [facility] [place], [place] [address] * ANTI HIV 1/2 (06/04/2016 11:34 AM CDT) HIV-1/HIV-2 ANTIBODY Non-Reacti ve Non-Reacti ve 06/04/2016 6:25 PM CDT [facility] Blood BLOOD SPECIMEN / Unknown Venipuncture / Unknown 06/04/2016 11:34 AM CDT 06/04/2016 11:34 AM CDT Narrative [facility] - 06/04/2016 6:25 PM CDT HIV-1 p24 and HIV-1/HIV-2 Ab not detected us Darling ELACH SEND OUTS Final R esult [facility] [address] [place] [address], from Last 3 Months or Most Recently Relevant to Health Maintenance Insurance MEDICARE [place] ONLY MEDICARE PART B HB ONLY MEDICARE PART A HB ONLY Member Subscriber Plan / Payer (Ef fective 2024-Present) Name:Joan Bird Member ID:[id number] Relation to Subscriber:Self Name:Joan Bird Subscriber ID:[id number] Payer ID:Not on file Group ID:Not on file Type:Not on file Address: ATTN: CLAIMS [id number] [facility] Advance Directives * Full Code (Latest Code [...] 5:45 AM 11/02/2013 2:41 AM Care Teams Mexican Food Cook Relationship Specialty Start Date End Date Macie Mendoza MD [address] [place] [id number] PCP - General Family Practice 09/23/25 Betito Ying MD [address] [address] Consulting Physician Surgery - General 12/28/24 Yessi Espana RN [address] [address] Attraction Attendant Registered Nurse 12/28/24
[2025-10-18 18:20] VITALS: BP 150/77; PULSE 85; RESP 18; TEMP 36.1; O2SAT 92; BMI 44.6
== END 2025-10-18 20:04 | disposition left against medical advice (07) ==
LOC: ED 19:55
PROVIDERS: PCP Family Medicine
DX: Z53.21 Procedure and treatment not carried out due to patient leaving prior to being seen by health care provider (principal)

== ENCOUNTER 2025-10-31 01:53 | Outpatient (CLI) | payer MEDICARE, SELFPAY | END 2025-10-31 01:54 | disposition home or self-care (01) | LOC: AMB 11-02 02:59 | PROVIDERS: PCP Family Medicine; Visit Provider Family Medicine | DX: S69.91XA Unspecified injury of right wrist, hand and finger(s), initial encounter (principal); W00.2XXA Other fall from one level to another due to ice and snow, initial encounter; Y92.481 Parking lot as the place of occurrence of the external cause | CPT/HCPCS: A0998 ==